=== PATIENT | female | born 1960 | race Caucasian/White ===

== ENCOUNTER 2019-05-17 11:52 | Inpatient (IN) | payer SELFPAY ==
[~2019-05-17] VITALS: Ht 157.5 cm; Wt 66.4 kg
[~2019-05-17 11:52] MED LIST: CLAR500T; METR500T14
[2019-05-17] MEDS ORDERED: MORPHINE SULFATE 4 MG/ML SYR/VIAL IV PRN (12:15)
[2019-05-17] MEDS ORDERED: PROMETHAZINE HCL 25 MG/ML 1ML IV ONE (12:15)
[2019-05-17] MEDS ORDERED: ASPirin 81 mg TAB PO ONE (12:15)
[2019-05-17] MEDS ORDERED: PANTOPRAZOLE 40 MG/10 ML VIAL INJ IV ONE (12:45)
[2019-05-17 14:26] LABS: Basophils # (auto) 0 uL; Basophils % (auto) 0.8 % (0.0-2.0); Eosinophils # (auto) 0.1 uL; Eosinophils % (auto) 1.8 % (0.0-7.0); Hematocrit 43.3 % (36.0-46.0); Hemoglobin 14.8 g/dL (12.2-16.2); Lymphocytes # (auto) 1.2 uL; Lymphocytes % (auto) 28.5 % (10.0-50.0); Mean Corpuscular Hgb Conc. 34.2 g/dL (32.0-36.0); Mean Corpuscular Volume 96.6 fL (80.0-100.0); Monocytes # (auto) 0.5 uL; Monocytes % (auto) 11.4 % (0.0-12.0); Neutrophils # (auto) 2.4 uL; Neutrophils % (auto) 57.5 % (37.0-80.0); Nucleated Red Blood Cells % 0.2 %; Platelet Count (auto) 110 10^3/uL (140-450); Red Blood Cells 4.49 10^6/uL (4.0-5.20); Red Cell Distribution Width 14.9 % (11.8-14.3); White Blood Cell 4.2 10^3/uL (4.4-10.8)
[2019-05-17 14:42] LABS: INR 1.09 (0.9-1.15); Partial Thromboplastin Time 25.8 sec (23.64-32.05)
[2019-05-17 14:56] LABS: Alanine Aminotransferase 227 U/L (13-56); Albumin 2.9 g/dL (3.4-5.0); Anion Gap 8 (5-15); Aspartate Aminotransferase 317 U/L (15-37); Blood Urea Nitrogen 14 mg/dL (7-18); Carbon Dioxide 25 mmol/L (21-32); Chloride 100 mmol/L (98-107); Magnesium 2.4 mg/dL (1.6-2.6); Potassium 4.2 mmol/L (3.5-5.1); Sodium 133 mmol/L (136-145)
[2019-05-17 15:01] LABS: Alkaline Phosphatase 337 U/L (45-117); BUN/Creatinine Ratio 17.9; Bilirubin, Total 3.5 mg/dL (0.2-1.0); GFR African American 98 mL/min; GFR Non-African American 81 mL/min; Total Protein 9.2 g/dL (6.4-8.2)
[2019-05-17 15:10] LABS: Glucose 432 mg/dL (74-106)
[2019-05-17] MEDS ORDERED: SODIUM CHLORIDE 0.9% 1,000 ML IVB ONE (15:36)
[2019-05-17] MEDS ORDERED: InsuLIN REG 1unit/0.01ml Soln (100units/ml) IV ONE (17:15)
[2019-05-17] MEDS ORDERED: INSULIN LANTUS (GLARGINE) 1 /0.01ml (100units/ml) SC ONE (17:45)
[2019-05-17] MEDS ORDERED: chlordiazePOXIDE HCL 25 MG CAP PO PRN (17:45)
[2019-05-17] MEDS ORDERED: THIAMINE 100mg/ml INJ (200mg/2ml VIAL) IV ONE (17:45)
[2019-05-17] MEDS ORDERED: traMADol HCL 50 MG TAB PO PRN (17:45)
[2019-05-17] MEDS ORDERED: NITROGLYCERIN 0.4 MG SL TAB SL PRN (17:45)
[2019-05-17] MEDS ORDERED: LACTULOSE 20Gm/30ML SOLN PO PRN (17:45)
[2019-05-17] MEDS ORDERED: MORPHINE SULF INJ 2 MG/ML SYRINGE 1ML IV PRN (17:45)
[2019-05-17] MEDS ORDERED: DEXTROSE (50%) 50ML SYRG IV PRN (17:45)
[2019-05-17] MEDS ORDERED: PROMETHAZINE HCL 25 MG/ML 1ML IV PRN (17:45)
[2019-05-17] MEDS ORDERED: ACETAMINOPHEN 500 MG TAB PO PRN (17:45)
[2019-05-17] MEDS ORDERED: NITROGLYCERIN 0.4 MG SL TAB SL ONE ×2 (17:52→18:00)
[2019-05-17] MEDS ORDERED: FOLIC ACID 1 MG, MULTIPLE VITAMIN 10 ML, MAGNESIUM SULF SDV 50% 8 MEQ, THIAMINE INJ 100... INJ SCH ×5 (18:05)
[2019-05-17] MEDS: SODIUM CHLORIDE 0.9% 1,000 ML IV SCH (18:15)
[2019-05-17] MEDS: chlordiazePOXIDE HCL 5 MG CAP PO SCH (18:16)
[2019-05-17 18:37] LABS: Alcohol, Urine < 3.0 mg/dL (0-5); Amphetamine Screen, Urine NEGATIVE (NEGATIVE); Barbiturate Scree,Urine NEGATIVE (NEGATIVE); Benzodiazephine Screen, Urine NEGATIVE (NEGATIVE); Cannabinoid Screen, Urine NEGATIVE (NEGATIVE); Cocaine Screen, Urine NEGATIVE (NEGATIVE); Opiate Scree,Urine NEGATIVE (NEGATIVE); Phencyclidine Screen, Urine NEGATIVE (NEGATIVE)
[2019-05-17] MEDS: ACCU-CHEK COMFORT CURVE STRIP VI SCH (20:18)
[2019-05-17] MEDS: InsuLIN REG 1unit/0.01ml Soln (100units/ml) SC SCH (20:22)
--- NOTE | 2019-05-17 21:05 | NUR ---
Telemetry admit from ER Patient admitted to Telemetry unit and oriented to primary RN, unit, room, bed, and unit policies regarding patient care and visiting hours. Patient now on continuous telemetry monitoring, tele box #HC-2 and telemetry reading on arrival to unit is sinus rhythm. Bed is in lowest position and locked. Call light within reach. Board updated. Patient weighed by bedscale and encouraged to call if they need something. All questions and concerns addressed, patient verbalized understanding.
[2019-05-17 21:10] VITALS: BP 141/80
[2019-05-17] MEDS: METOPROLOL TARTRATE 25 MG TAB PO SCH (21:18)
[2019-05-17 21:51] VITALS: BP 141/80
[2019-05-18 00:02] LABS: Amylase 22 U/L (25-115); Lipase 218 U/L (73-393)
[2019-05-18] MEDS: chlordiazePOXIDE HCL 5 MG CAP PO SCH ×4 (00:15→18:22)
[2019-05-18] MEDS: InsuLIN REG 1unit/0.01ml Soln (100units/ml) SC SCH ×5 (00:15→18:23)
[2019-05-18] MEDS: ACCU-CHEK COMFORT CURVE STRIP VI SCH ×5 (00:16→18:23)
[2019-05-18] MEDS: SODIUM CHLORIDE 0.9% 1,000 ML IV SCH ×2 (03:36→13:34)
[2019-05-18 04:50] VITALS: BP 120/84
[2019-05-18 06:04] LABS: Basophils # (auto) 0 uL; Basophils % (auto) 1.3 % (0.0-2.0); Eosinophils # (auto) 0.1 uL; Eosinophils % (auto) 1.6 % (0.0-7.0); Hematocrit 37.2 % (36.0-46.0); Hemoglobin 12.6 g/dL (12.2-16.2); Lymphocytes % (auto) 30.5 % (10.0-50.0); Mean Corpuscular Hemoglobin 32.8 pg (28.0-32.0); Mean Corpuscular Hgb Conc. 33.8 g/dL (32.0-36.0); Mean Corpuscular Volume 96.9 fL (80.0-100.0); Monocytes # (auto) 0.4 uL; Monocytes % (auto) 11.8 % (0.0-12.0); Neutrophils # (auto) 1.9 uL; Neutrophils % (auto) 54.8 % (37.0-80.0); Platelet Count (auto) 89 10^3/uL (140-450); Red Blood Cells 3.84 10^6/uL (4.0-5.20); White Blood Cell 3.4 10^3/uL (4.4-10.8)
[2019-05-18 06:38] LABS: Albumin 2.3 g/dL (3.4-5.0); Calcium 7.9 mg/dL (8.5-10.1); Potassium 3.5 mmol/L (3.5-5.1)
[2019-05-18 06:43] LABS: Bilirubin, Total 2.1 mg/dL (0.2-1.0); Total Protein 7.2 g/dL (6.4-8.2)
[2019-05-18] MEDS: INSULIN LANTUS (GLARGINE) 1 /0.01ml (100units/ml) SC SCH ×2 (06:44→21:59)
--- NOTE | 2019-05-18 07:30 | NUR ---
OPENING SHIFT NOTE RECEIVED REPORT FROM [facility] NURSE, ASSUMED CARE OF PATIENT. PATIENT IS A&OX4 AND DENIES ANY C/O PAIN OR DISTRESS AT THIS TIME. PATIENT BED IS IN LOW POSITION, BRAKES APPLIED, BED RAILS UP X2 AND CALL LIGHT WITHIN REACH. EDUCATED PATIENT ON POC AND CALL LIGHT USE PRN, PATIENT VERBALIZED UNDERSTANDING. CONTINUING TO MONITOR Q1 HR AND PRN
[2019-05-18 08:31] LABS: BUN/Creatinine Ratio 21.1
[2019-05-18 09:00] VITALS: BP 117/74
[2019-05-18] MEDS: PANTOPRAZOLE 40 MG TAB PO SCH (09:03)
[2019-05-18] MEDS: METOPROLOL TARTRATE 25 MG TAB PO SCH ×2 (09:04→21:59)
[2019-05-18] MEDS: THIAMINE 100mg/ml INJ (200mg/2ml VIAL) IV SCH (09:05)
[2019-05-18] MEDS ORDERED: ENALAPRIL MALEATE 2.5 MG TAB PO SCH (10:00)
[2019-05-18] MEDS ORDERED: NITROGLYCERIN 0.2MG/HR TOPICAL PATCH TD SCH (10:00)
[2019-05-18] MEDS ORDERED: ENOXAPARIN SOD 40 MG/0.4 ML SYRINGE SC SCH (10:00)
[2019-05-18] MEDS ORDERED: ASPirin 81 mg TAB PO SCH (10:00)
[2019-05-18] MEDS ORDERED: FOLIC ACID 1 MG, MULTIPLE VITAMIN 10 ML, MAGNESIUM SULF SDV 50% 8 MEQ, THIAMINE INJ 100... INJ SCH ×5 (12:00)
[2019-05-18 13:09] VITALS: BP 116/72
--- NOTE | 2019-05-18 14:00 | NUR ---
AT BEDSIDE DR MCCURDY AT BEDSIDE
--- NOTE | 2019-05-18 14:28 | NUR ---
RECEIVED CALL FROM DR GARSIA PER DR GARSIA HE STATED HE IS TOO BUSY TODAY AND IS UNABLE TO SEE THE PATIENT, SHE WILL NEED TO BE SEEN TOMORROW.
[2019-05-18] MEDS ORDERED: DEXTROSE (50%) 50ML SYRG IV PRN (16:00)
[2019-05-18 16:08] LABS: % Iron Saturation 17.4 % (15-50)
[2019-05-18 16:57] VITALS: BP 117/79
--- NOTE | 2019-05-18 17:50 | NUR ---
echo being completed at this time
[2019-05-18] MEDS ORDERED: ACCU-CHEK COMFORT CURVE STRIP VI SCH (18:00)
[2019-05-18 19:14] LABS: Urine Bacteria NONE SEEN /hpf (None Seen); Urine Blood Negative /uL (Negative); Urine Mucus FEW (None Seen); Urine Specific Gravity 1.021 (1.001-1.035); Urine WBC 5 /hpf (0 - 5)
--- NOTE | 2019-05-18 19:26 | NUR ---
Opening Shift Note Assumed care of patient, awake and alert x 4. No S/S of distress/SOB. Bed is in lowest position and locked. Call light within reach. Board updated. Tele box number matches monitor and leads are in correct placement. Instructed on POC and to call for assist PRN, will continue to monitor for changes Q1hr and PRN.
[2019-05-18] MEDS ORDERED: InsuLIN REG 1unit/0.01ml Soln (100units/ml) SC SCH (20:00)
[2019-05-18 21:33] VITALS: BP_SYST 115; BP_SYST 91; BP_DIAS 71; BP_DIAS 79
[2019-05-19] MEDS: chlordiazePOXIDE HCL 5 MG CAP PO SCH ×4 (00:18→17:59)
[2019-05-19] MEDS: InsuLIN REG 1unit/0.01ml Soln (100units/ml) SC SCH ×5 (00:19→23:24)
[2019-05-19] MEDS: ACCU-CHEK COMFORT CURVE STRIP VI SCH ×5 (00:19→23:24)
[2019-05-19 05:08] VITALS: BP 97/61
[2019-05-19] MEDS: INSULIN LANTUS (GLARGINE) 1 /0.01ml (100units/ml) SC SCH ×2 (06:17→23:03)
--- NOTE | 2019-05-19 07:40 | NUR ---
OPENING NOTE ASSUMED CARE OF PT. ALERT AND ORIENTED. NO SIGNS OF SOB/DISTRESS NOTED. DENIES ANY PAIN. BED SET TO LOWEST POSITION/LOCKED. BEDSIDE RAILS UP X2. CALL LIGHT WITHIN REACH. INSTRUCTED PT TO CALL FOR ASSISTANCE. DISCUSSED POC. WILL CONTINUE TO MONITOR Q1HR AND PRN.
[2019-05-19 08:00] VITALS: BP 105/72
[2019-05-19] MEDS: METOPROLOL TARTRATE 25 MG TAB PO SCH ×2 (09:52→23:02)
[2019-05-19] MEDS: PANTOPRAZOLE 40 MG TAB PO SCH (09:52)
[2019-05-19] MEDS: THIAMINE 100mg/ml INJ (200mg/2ml VIAL) IV SCH (09:52)
[2019-05-19 12:00] VITALS: BP 133/70
[2019-05-19] MEDS ORDERED: FUROSEMIDE 20 MG TAB PO ONE (13:30)
[2019-05-19] MEDS ORDERED: POTASSIUM CHL 10 Meq TABLET PO ONE (13:30)
[2019-05-19 14:23] LABS: Hepatitis B Surface Antibody Negative
[2019-05-19 15:02] LABS: Hepatitis A Total Antibody Negative
[2019-05-19 15:35] LABS: Hepatitis B Surface Antigen Negative (Negative)
[2019-05-19 15:36] LABS: Hepatitis B Core Total AB Negative
[2019-05-19 15:37] LABS: Hepatitis C Antibody Positive (Negative)
--- NOTE | 2019-05-19 16:44 | NUR ---
assessment Per consult patient does not have PCP. Josefa Doss to see patient for PCP. Addendum: 05/19/19 at 1645 by Josefa Thayer Amended: Links added.
[2019-05-19 17:00] VITALS: BP 130/83
--- NOTE | 2019-05-19 19:20 | NUR ---
Opening Shift Note Assumed care of patient, awake and alert. No S/S of distress/SOB or pain. Instructed on POC and to call for assist PRN, will continue to monitor for changes Q1hr and PRN.
[2019-05-19 22:00] VITALS: BP 124/78
[2019-05-19] MEDS ORDERED: ATORVASTATIN 20 MG TAB PO SCH (22:00)
[2019-05-19] MEDS: PROPRANOLOL HCL 20 MG TAB PO SCH (23:02)
[2019-05-20] MEDS: chlordiazePOXIDE HCL 5 MG CAP PO SCH ×2 (00:26→06:00)
[2019-05-20 05:00] VITALS: BP 101/72
[2019-05-20] MEDS: InsuLIN REG 1unit/0.01ml Soln (100units/ml) SC SCH ×3 (06:00→17:31)
--- NOTE | 2019-05-20 06:30 | NUR ---
IV insertion IV access obtained, via clean sterile technique by inserting 22 gauge catheter at the right hand after 1 attempt(s). IV secured properly. No trauma to site. Patient tolerated well.
[2019-05-20] MEDS: INSULIN LANTUS (GLARGINE) 1 /0.01ml (100units/ml) SC SCH ×2 (07:02→22:09)
[2019-05-20] MEDS: ACCU-CHEK COMFORT CURVE STRIP VI SCH ×3 (07:03→17:30)
--- NOTE | 2019-05-20 08:00 | NUR ---
PATIENT OFF UNIT VIA WHEELCHAIR FOR STRESS TEST.
[2019-05-20] MEDS ORDERED: ADENOSINE 55 MG in GIVE UN-DILUTED 0 ML IV STA (08:21)
[2019-05-20 08:59] VITALS: BP 128/74
[2019-05-20] MEDS: METOPROLOL TARTRATE 25 MG TAB PO SCH (10:09)
[2019-05-20] MEDS: PANTOPRAZOLE 40 MG TAB PO SCH (10:09)
[2019-05-20] MEDS: THIAMINE 100mg/ml INJ (200mg/2ml VIAL) IV SCH (10:09)
[2019-05-20] MEDS: POTASSIUM CHL 10 Meq TABLET PO SCH (10:09)
[2019-05-20] MEDS: PROPRANOLOL HCL 20 MG TAB PO SCH ×2 (10:18→22:08)
[2019-05-20] MEDS: FUROSEMIDE 20 MG TAB PO SCH (10:19)
[2019-05-20] MEDS ORDERED: MORPHINE SULFATE 4 MG/ML SYR/VIAL IV PRN (12:15)
[2019-05-20] MEDS ORDERED: MORPHINE SULF INJ 2 MG/ML SYRINGE 1ML IV PRN (12:15)
[2019-05-20 13:20] VITALS: BP 117/71
--- NOTE | 2019-05-20 16:03 | NUR ---
IV removal Left AC 18 gauge IV infiltrated. DC'd with sterile technique, catheter fully intact. Pressure dressing applied to site. Patient tolerated procedure well.
[2019-05-20 16:53] VITALS: BP 108/50
[2019-05-20 22:00] VITALS: BP 119/71
[2019-05-21] MEDS: ACCU-CHEK COMFORT CURVE STRIP VI SCH ×5 (00:59→23:53)
[2019-05-21] MEDS: InsuLIN REG 1unit/0.01ml Soln (100units/ml) SC SCH ×5 (00:59→23:53)
[2019-05-21 05:00] VITALS: BP 112/71
[2019-05-21] MEDS: INSULIN LANTUS (GLARGINE) 1 /0.01ml (100units/ml) SC SCH ×2 (06:43→22:46)
[2019-05-21 07:59] LABS: Basophils # (auto) 0 uL; Basophils % (auto) 0.9 % (0.0-2.0); Eosinophils # (auto) 0.1 uL; Eosinophils % (auto) 2.5 % (0.0-7.0); Hematocrit 40.1 % (36.0-46.0); Hemoglobin 13.6 g/dL (12.2-16.2); Lymphocytes # (auto) 1.3 uL; Lymphocytes % (auto) 35.3 % (10.0-50.0); Mean Corpuscular Hemoglobin 32.9 pg (28.0-32.0); Mean Corpuscular Hgb Conc. 33.9 g/dL (32.0-36.0); Monocytes # (auto) 0.5 uL; Monocytes % (auto) 14.9 % (0.0-12.0); Neutrophils # (auto) 1.7 uL; Neutrophils % (auto) 46.4 % (37.0-80.0); Nucleated Red Blood Cells % 0.1 %; Platelet Count (auto) 103 10^3/uL (140-450); Red Blood Cells 4.14 10^6/uL (4.0-5.20); Red Cell Distribution Width 15.1 % (11.8-14.3); White Blood Cell 3.6 10^3/uL (4.4-10.8)
[2019-05-21 08:15] LABS: Potassium 3.7 mmol/L (3.5-5.1)
[2019-05-21 08:23] LABS: Albumin 2.4 g/dL (3.4-5.0); BUN/Creatinine Ratio 21.3; Calcium 7.2 mg/dL (8.5-10.1); Total Protein 7.9 g/dL (6.4-8.2)
[2019-05-21 09:00] VITALS: BP 114/71
[2019-05-21] MEDS: THIAMINE 100mg/ml INJ (200mg/2ml VIAL) IV SCH (09:51)
[2019-05-21] MEDS: PROPRANOLOL HCL 20 MG TAB PO SCH ×2 (09:51→22:45)
[2019-05-21] MEDS: POTASSIUM CHL 10 Meq TABLET PO SCH (09:51)
[2019-05-21] MEDS: FUROSEMIDE 20 MG TAB PO SCH (09:52)
[2019-05-21] MEDS: PANTOPRAZOLE 40 MG TAB PO SCH (09:52)
--- NOTE | 2019-05-21 12:18 | NUR ---
DIABETIC EDUCATION PROVIDED TO PATIENT.
--- NOTE | 2019-05-21 12:38 | NUR ---
Nutrition Assessment Notes please see attached link for complete assessment Est. Needs BW (66 kg): 0144-4920 kcal (23-25 kcal/kgBW), 66-72 gms pro (1.0-1.1 gms/kgBW). Will continue to monitor pertinent labs and reassess nutrient need prn Addendum: 05/21/19 at [address] Amended: Links added.
[2019-05-21 13:00] VITALS: BP 108/70
[2019-05-21 16:45] VITALS: BP 115/78
--- NOTE | 2019-05-21 19:25 | NUR ---
Opening Shift Note Assumed care of patient, awake and alert. Patient is comfortable watching TV. No S/S of distress/SOB or pain. Instructed and educated patient on updated POC and to call for assist PRN, will continue to monitor for changes Q1hr and PRN.
[2019-05-21 22:00] VITALS: BP 109/70
[2019-05-22 05:00] VITALS: BP 106/69
[2019-05-22] MEDS: InsuLIN REG 1unit/0.01ml Soln (100units/ml) SC SCH ×4 (06:00→23:41)
[2019-05-22] MEDS: ACCU-CHEK COMFORT CURVE STRIP VI SCH ×4 (06:26→23:41)
[2019-05-22] MEDS: INSULIN LANTUS (GLARGINE) 1 /0.01ml (100units/ml) SC SCH ×2 (06:26→21:48)
[2019-05-22 06:30] LABS: Basophils # (auto) 0 uL; Eosinophils # (auto) 0.1 uL; Eosinophils % (auto) 2.4 % (0.0-7.0); Hematocrit 39.9 % (36.0-46.0); Hemoglobin 13.6 g/dL (12.2-16.2); Lymphocytes # (auto) 1.4 uL; Lymphocytes % (auto) 33.9 % (10.0-50.0); Mean Corpuscular Hemoglobin 32.8 pg (28.0-32.0); Mean Corpuscular Hgb Conc. 34.1 g/dL (32.0-36.0); Mean Corpuscular Volume 96.2 fL (80.0-100.0); Monocytes # (auto) 0.7 uL; Monocytes % (auto) 16.5 % (0.0-12.0); Neutrophils # (auto) 1.9 uL; Neutrophils % (auto) 46.2 % (37.0-80.0); Nucleated Red Blood Cells % 0.1 %; Platelet Count (auto) 117 10^3/uL (140-450); Red Blood Cells 4.14 10^6/uL (4.0-5.20); Red Cell Distribution Width 14.8 % (11.8-14.3); White Blood Cell 4.2 10^3/uL (4.4-10.8)
[2019-05-22 06:53] LABS: Albumin 2.3 g/dL (3.4-5.0); Potassium 3.5 mmol/L (3.5-5.1)
[2019-05-22 06:56] LABS: Bilirubin, Total 1.7 mg/dL (0.2-1.0); Calcium 8.8 mg/dL (8.5-10.1); Total Protein 7.9 g/dL (6.4-8.2)
--- NOTE | 2019-05-22 07:15 | NUR ---
CLOSING NOTE The patient is resting comfortably in bed. Care has been endorsed to day shift RN.
[2019-05-22 09:00] VITALS: BP 105/74
[2019-05-22] MEDS: THIAMINE 100mg/ml INJ (200mg/2ml VIAL) IV SCH (09:58)
[2019-05-22] MEDS: POTASSIUM CHL 10 Meq TABLET PO SCH (09:58)
[2019-05-22] MEDS: PANTOPRAZOLE 40 MG TAB PO SCH (09:59)
[2019-05-22] MEDS: PROPRANOLOL HCL 20 MG TAB PO SCH (09:59)
[2019-05-22] MEDS: FUROSEMIDE 20 MG TAB PO SCH (09:59)
[2019-05-22 12:49] VITALS: BP 125/82
[2019-05-22 17:00] VITALS: BP 117/79
[2019-05-22 22:00] VITALS: BP 100/66
[2019-05-22] MEDS: TEMAZEPAM 15 MG CAP PO PRN (23:42)
[2019-05-23 05:00] VITALS: BP 104/69
[2019-05-23] MEDS: InsuLIN REG 1unit/0.01ml Soln (100units/ml) SC SCH ×3 (05:31→18:24)
[2019-05-23] MEDS: ACCU-CHEK COMFORT CURVE STRIP VI SCH ×3 (05:31→18:23)
[2019-05-23] MEDS: INSULIN LANTUS (GLARGINE) 1 /0.01ml (100units/ml) SC SCH ×2 (06:39→22:24)
[2019-05-23 08:00] VITALS: BP 104/67
[2019-05-23 08:08] LABS: Albumin 2.3 g/dL (3.4-5.0); Bilirubin, Direct 1.3 mg/dL (0-0.2)
[2019-05-23 08:11] LABS: Bilirubin, Total 1.8 mg/dL (0.2-1.0)
[2019-05-23] MEDS: PANTOPRAZOLE 40 MG TAB PO SCH (10:15)
[2019-05-23] MEDS: FOLIC ACID 1 MG, MULTIPLE VITAMIN 10 ML, MAGNESIUM SULF SDV 50% 8 MEQ, THIAMINE INJ 100... INJ SCH ×5 (12:20)
[2019-05-23 13:00] VITALS: BP 112/74
[2019-05-23] MEDS: LACTULOSE 20Gm/30ML SOLN PO SCH ×2 (14:06→22:00)
[2019-05-23 17:00] VITALS: BP 121/77
[2019-05-23 21:52] VITALS: BP 116/79
[2019-05-24] MEDS: ACCU-CHEK COMFORT CURVE STRIP VI SCH ×5 (00:03→23:53)
[2019-05-24] MEDS: InsuLIN REG 1unit/0.01ml Soln (100units/ml) SC SCH ×5 (00:03→23:54)
[2019-05-24] MEDS: TEMAZEPAM 15 MG CAP PO PRN (00:04)
[2019-05-24 05:00] VITALS: BP 109/69
[2019-05-24 06:06] LABS: Albumin 2.4 g/dL (3.4-5.0); Bilirubin, Direct 1.1 mg/dL (0-0.2); Bilirubin, Total 1.5 mg/dL (0.2-1.0); Total Protein 7.5 g/dL (6.4-8.2)
[2019-05-24] MEDS: LACTULOSE 20Gm/30ML SOLN PO SCH ×3 (06:06→21:30)
[2019-05-24] MEDS: INSULIN LANTUS (GLARGINE) 1 /0.01ml (100units/ml) SC SCH ×2 (06:32→21:30)
--- NOTE | 2019-05-24 07:30 | NUR ---
RECEIVED REPORT FROM NIGHT NURSE. PATIENT RESTING IN BED, NO DISTRESS NOTED. WILL CONTINUE TO MONITOR.
[2019-05-24] MEDS: PANTOPRAZOLE 40 MG TAB PO SCH (09:18)
[2019-05-24 09:29] VITALS: BP 120/77
[2019-05-24] MEDS: FOLIC ACID 1 MG, MULTIPLE VITAMIN 10 ML, MAGNESIUM SULF SDV 50% 8 MEQ, THIAMINE INJ 100... INJ SCH ×5 (11:53)
--- NOTE | 2019-05-24 12:01 | NUR ---
Nutrition consult/Follow-up Notes Wt. 113 kg Pt. visit: Endorses excellent and improved appetite with no reports of GI distress. PO intake 100% x 3 days. No major changes since previous assessment. Est. Needs (based on previous assessment) Calories/Kcals/Kg 23-25 Kcals Calculated 1650 Proteing/K.0-1.1 Protein Calculated 66 Labs: POC glc >180 mg/dL x 3 days, AST 610H, ALT 403H, ALB 2.4L Skin: Liborio 18 GI: BM x 1 PES: Altered nutrition related lab values r/t current chronic medical condition aeb elev LFTs, mod hypoalb, hyperbil, elev A1c, hyperglycemia (ongoing) Plan of care: Monitor PO intake/tolerance, weight trends, labs, skin integrity. F/u mod 3-5 days. Recommendations: 1) Consider low fat diet for elevated LFT's and continue CCHO diet as ordered and as tolerated.
[2019-05-24 13:00] VITALS: BP_SYST 120; BP_SYST 132; BP_DIAS 58; BP_DIAS 76
[2019-05-24 17:17] VITALS: BP 135/81
[2019-05-24 22:00] VITALS: BP 128/79
[2019-05-25 05:00] VITALS: BP 117/74
[2019-05-25] MEDS: InsuLIN REG 1unit/0.01ml Soln (100units/ml) SC SCH ×4 (06:00→23:56)
[2019-05-25] MEDS: ACCU-CHEK COMFORT CURVE STRIP VI SCH ×4 (06:20→23:56)
[2019-05-25] MEDS: LACTULOSE 20Gm/30ML SOLN PO SCH ×3 (06:20→22:00)
[2019-05-25] MEDS: INSULIN LANTUS (GLARGINE) 1 /0.01ml (100units/ml) SC SCH ×2 (06:21→22:19)
--- NOTE | 2019-05-25 07:45 | NUR ---
Opening Shift Note Assumed care of patient, comfortably sleeping. No S/S of distress/SOB or pain. Bed at lowest locked position and call light within reach. Instructed on POC and to call for assist PRN, will continue to monitor for changes Q1hr and PRN.
[2019-05-25 08:00] VITALS: BP 130/74
[2019-05-25] MEDS: PANTOPRAZOLE 40 MG TAB PO SCH (08:41)
[2019-05-25 09:00] VITALS: BP 130/74
[2019-05-25] MEDS: FOLIC ACID 1 MG, MULTIPLE VITAMIN 10 ML, MAGNESIUM SULF SDV 50% 8 MEQ, THIAMINE INJ 100... INJ SCH ×5 (12:00)
[2019-05-25 13:00] VITALS: BP 119/80
--- NOTE | 2019-05-25 15:50 | NUR ---
Patient reports having a normal BM.
[2019-05-25 17:04] VITALS: BP 136/87
--- NOTE | 2019-05-25 18:35 | NUR ---
Patient reports having 3 bowel movements throughout shift .
--- NOTE | 2019-05-25 19:00 | NUR ---
OPENING NOTE Received report from day shift RN. Patient is A&O X's 4 with no s/s of distress noted. Patient reports no pain. She states that she feels a little bloated right now so she does not want to take her lactulose tonight. Educated patient on POC and to use call light when in need of assistance. Patient verbalized understanding. Bed is in lowest/locked position with side rails up X's 2 and call light is within reach of patient. Will continue to monitor for changes and round hourly/PRN.
[2019-05-25 22:00] VITALS: BP 135/76
[2019-05-25] MEDS: TEMAZEPAM 15 MG CAP PO PRN (23:56)
[2019-05-26 05:00] VITALS: BP 117/77
[2019-05-26] MEDS: LACTULOSE 20Gm/30ML SOLN PO SCH (06:00)
[2019-05-26] MEDS: InsuLIN REG 1unit/0.01ml Soln (100units/ml) SC SCH ×3 (06:00→18:04)
[2019-05-26] MEDS: ACCU-CHEK COMFORT CURVE STRIP VI SCH ×3 (06:31→18:04)
[2019-05-26] MEDS: INSULIN LANTUS (GLARGINE) 1 /0.01ml (100units/ml) SC SCH ×2 (06:31→22:36)
--- NOTE | 2019-05-26 07:36 | NUR ---
Opening Shift Note Assumed care of patient, comfortably sleeping. No S/S of distress/SOB or pain noted. Bed at lowest locked position and call light within reach. Instructed on POC and to call for assist PRN, will continue to monitor for changes Q1hr and PRN.
[2019-05-26 08:00] VITALS: BP 107/69
[2019-05-26] MEDS ORDERED: chlordiazePOXIDE HCL 25 MG CAP PO PRN (08:45)
[2019-05-26] MEDS ORDERED: LACTULOSE 20Gm/30ML SOLN PO PRN (08:45)
[2019-05-26 09:00] VITALS: BP 107/69
[2019-05-26 09:24] LABS: Basophils # (auto) 0 uL; Basophils % (auto) 1.1 % (0.0-2.0); Eosinophils # (auto) 0.1 uL; Hematocrit 40.6 % (36.0-46.0); Hemoglobin 13.5 g/dL (12.2-16.2); Mean Corpuscular Hemoglobin 32.5 pg (28.0-32.0); Mean Corpuscular Hgb Conc. 33.2 g/dL (32.0-36.0); Mean Corpuscular Volume 97.8 fL (80.0-100.0); Monocytes # (auto) 0.5 uL; Monocytes % (auto) 13.3 % (0.0-12.0); Neutrophils # (auto) 2.2 uL; Neutrophils % (auto) 57.6 % (37.0-80.0); Platelet Count (auto) 104 10^3/uL (140-450); Red Blood Cells 4.15 10^6/uL (4.0-5.20); Red Cell Distribution Width 14.1 % (11.8-14.3); White Blood Cell 3.7 10^3/uL (4.4-10.8)
[2019-05-26 09:42] LABS: Albumin 2.7 g/dL (3.4-5.0); BUN/Creatinine Ratio 17.8; Calcium 8.5 mg/dL (8.5-10.1); Potassium 4.2 mmol/L (3.5-5.1)
[2019-05-26 09:45] LABS: Bilirubin, Total 1.6 mg/dL (0.2-1.0); Total Protein 8.2 g/dL (6.4-8.2)
[2019-05-26] MEDS: PANTOPRAZOLE 40 MG TAB PO SCH (10:00)
[2019-05-26 10:31] LABS: INR 1.07 (0.9-1.15); Partial Thromboplastin Time 27.3 sec (23.64-32.05)
[2019-05-26] MEDS: FOLIC ACID 1 MG, MULTIPLE VITAMIN 10 ML, MAGNESIUM SULF SDV 50% 8 MEQ, THIAMINE INJ 100... INJ SCH ×5 (12:00)
[2019-05-26] MEDS ORDERED: MIDAZOLAM HCL 1MG/1ML-2 ML VIAL IV ONE (12:45)
[2019-05-26] MEDS ORDERED: fentaNYL CITRATE 100 MCG/2 ML VL IV ONE (12:45)
[2019-05-26 13:00] VITALS: BP 133/76
--- NOTE | 2019-05-26 16:55 | NUR ---
IV ON RIGHT HAND CAME OUT. APPLIED STERILE GAUZE AND COBAN. NO REDNESS/SWELLING NOTED, SLIGHT BRUISING NOTICED, TENDER TO TOUCH.
[2019-05-26 17:00] VITALS: BP 124/80
--- NOTE | 2019-05-26 17:00 | NUR ---
ATTEMPTED TO PLACE IV ON LEFT HAND, TWO TIMES. NO ACCESS OBTAINED. Addendum: 05/26/19 at 1821 by Michelle Aguilar RN Patient requested IV to be placed after dinner. Will pass on to ABIEL JC.
--- NOTE | 2019-05-26 19:00 | NUR ---
Opening Shift Note Assumed care of patient. Patient is awake and alert. No S/S of distress or SOB. Instructed on POC and to call for assist PRN, will continue to monitor. Bed in lowest position and bed rails up x2. Call light within reach.
--- NOTE | 2019-05-26 19:40 | NUR ---
Opening Shift Note Assumed care of patient, lying in bed, Maori speaking, bilingual research interviewer at bedside. Awake and alert, oriented x 4, follows direction, clear speech. On oxygen at 2L via NC with even and unlabored respirations, no S/S of distress or SOB. Patient is s/p right hemiarthroplasty on 05/25/19, dressing to right hip clean, dry and intact. Abductor pillow on. Remy intact and draining to gravity. IV to right upper arm intact and patent. IS at bedside, patient is able to use IS independently. Bed low locked position with side rails up x 2 and call light within reach. Instructed on POC and to call for assist PRN, will continue to monitor for changes Q1hr and PRN. Addendum: 05/28/19 at 0414 by Ale Chacko RN RN WRONG PATIENT
[2019-05-26 22:00] VITALS: BP 135/85
--- NOTE | 2019-05-26 23:00 | NUR ---
IV insertion IV access obtained, via clean sterile technique by inserting 20 gauge catheter at left forearm after 2 attempt(s). IV secured properly. No trauma to site. Patient tolerated well. NOTE:
[2019-05-26] MEDS: TEMAZEPAM 15 MG CAP PO PRN (23:45)
[2019-05-27] MEDS: ACCU-CHEK COMFORT CURVE STRIP VI SCH ×4 (01:11→23:01)
[2019-05-27] MEDS: InsuLIN REG 1unit/0.01ml Soln (100units/ml) SC SCH ×4 (01:11→23:01)
[2019-05-27 07:05] LABS: Albumin 2.3 g/dL (3.4-5.0); Bilirubin, Direct 1.1 mg/dL (0-0.2)
[2019-05-27 07:08] LABS: Bilirubin, Total 1.5 mg/dL (0.2-1.0)
[2019-05-27 08:00] VITALS: BP 98/72
[2019-05-27] MEDS: PANTOPRAZOLE 40 MG TAB PO SCH (09:12)
[2019-05-27] MEDS: FOLIC ACID 1 MG, MULTIPLE VITAMIN 10 ML, MAGNESIUM SULF SDV 50% 8 MEQ, THIAMINE INJ 100... INJ SCH ×5 (12:45)
[2019-05-27 13:00] VITALS: BP 126/71
[2019-05-27 17:00] VITALS: BP 132/89
--- NOTE | 2019-05-27 19:30 | NUR ---
Opening Shift Note Assumed care of patient. Patient is awake and alert. No S/S of distress or SOB. Instructed on POC and to call for assist PRN, will continue to monitor. Bed locked in lowest position and side rails up x2. Call light within reach.
--- NOTE | 2019-05-27 21:00 | NUR ---
IV removal IV removed upon patient request. Attempted to place new IV and patient refused. Explained and educated the patient on the possible risks with removal of her IV. Patient verbalized understanding of the risks and stated "Im going home tomorrow, i dont want it in anymore".
[2019-05-27 22:00] VITALS: BP 127/95
[2019-05-27] MEDS: INSULIN LANTUS (GLARGINE) 1 /0.01ml (100units/ml) SC SCH (22:52)
[2019-05-27] MEDS: TEMAZEPAM 15 MG CAP PO PRN (22:53)
[2019-05-28 05:00] VITALS: BP 122/82
[2019-05-28] MEDS: ACCU-CHEK COMFORT CURVE STRIP VI SCH (06:26)
[2019-05-28] MEDS: InsuLIN REG 1unit/0.01ml Soln (100units/ml) SC SCH (06:27)
[2019-05-28] MEDS: INSULIN LANTUS (GLARGINE) 1 /0.01ml (100units/ml) SC SCH (06:28)
[2019-05-28 06:39] LABS: Albumin 2.4 g/dL (3.4-5.0); Bilirubin, Total 1.4 mg/dL (0.2-1.0); Calcium 8.9 mg/dL (8.5-10.1); Potassium 3.8 mmol/L (3.5-5.1); Total Protein 8.1 g/dL (6.4-8.2)
[2019-05-28] MEDS: PANTOPRAZOLE 40 MG TAB PO SCH (08:37)
[2019-05-28 09:00] VITALS: BP 119/74
[2019-05-28 12:00] VITALS: BP 117/80
--- NOTE | 2019-05-28 13:21 | NUR ---
patient verbalized her transportation has arrived, she signed all discharge forms, collected all belongings and written prescriptions, verbalized understanding to supervisor [facility] and to follow up with GI and Primary physician as ordered. she denies any pain.
== END 2019-05-28 13:15 | disposition home or self-care (01) | DRG 433 ==
LOC: EDBD 11:52 → ER 12:05 → TELE 12:06 → TELE-WESTW 20:50 → WEST WING 05-21 12:15
PROVIDERS: ADMIT Internal Medicine; ATTEND Internal Medicine
DX: K70.30 Alcoholic cirrhosis of liver without ascites (principal); E44.0 Moderate protein-calorie malnutrition; K76.6 Portal hypertension; D69.6 Thrombocytopenia, unspecified; F10.10 Alcohol abuse, uncomplicated; I11.9 Hypertensive heart disease without heart failure; E11.65 Type 2 diabetes mellitus with hyperglycemia; Z80.8 Family history of malignant neoplasm of other organs or systems; Z82.49 Family history of ischemic heart disease and other diseases of the circulatory system; B19.20 Unspecified viral hepatitis C without hepatic coma; Z88.0 Allergy status to penicillin; Z88.2 Allergy status to sulfonamides; Z68.26 Body mass index [BMI] 26.0-26.9, adult
CPT/HCPCS: 36415; 71046; 74176; 76705; 78452; 80053; 80061; 80076; 80307; 81001; 82140; 82150; 82390; 82550; 82728; 82962; 83036; 83540; 83550; 83690; 83735; 83880; 84443; 84484; 85025; 85379; 85610; 85652; 85730; 86038; 86141; 86704; 86706; 86708; 86803; 87340; 93005; 93017; 93306; 94761; 96365; 96372; 96375; G0378; J0153; J1815

== ENCOUNTER 2020-03-04 07:59 | Emergency (ER) | payer MEDICAID ==
[~2020-03-04] VITALS: Ht 157.5 cm; Wt 71.2 kg
[~2020-03-04 07:59] MED LIST changes: -CLAR500T; +INSU100I4 SC; +INSU1INJ19 SC; +LISI-275 PO; -METR500T14; +SUM25T PO
[2020-03-04 08:38] LABS: Basophils # (auto) 0 10 ^3/uL (0-0.2); Basophils % (auto) 1.1 % (0.0-2.0); Eosinophils # (auto) 0.2 10 ^3/uL (0-0.8); Eosinophils % (auto) 4.6 % (0.0-7.0); Hemoglobin 13.5 g/dL (12.2-16.2); Lymphocytes # (auto) 1.4 10 ^3/uL (0.4-5.4); Lymphocytes % (auto) 32.6 % (10.0-50.0); Mean Corpuscular Hemoglobin 33.3 pg (28.0-32.0); Mean Corpuscular Hgb Conc. 34.7 g/dL (32.0-36.0); Mean Corpuscular Volume 96.2 fL (80.0-100.0); Monocytes # (auto) 0.5 10 ^3/uL (0-1.3); Neutrophils # (auto) 2.2 10 ^3/uL (1.6-8.6); Neutrophils % (auto) 50.7 % (37.0-80.0); Nucleated Red Blood Cells % 0.1 %; Platelet Count (auto) 70 10^3/uL (140-450); Red Blood Cells 4.06 10^6/uL (4.0-5.20); Red Cell Distribution Width 15.5 % (11.8-14.3); White Blood Cell 4.3 10^3/uL (4.4-10.8)
[2020-03-04 09:02] LABS: INR 1.3 (0.9-1.15); Partial Thromboplastin Time 30.2 sec (23.64-32.05)
[2020-03-04 09:03] LABS: Albumin 2.4 g/dL (3.4-5.0); Anion Gap 10 (5-15); Blood Urea Nitrogen 8 mg/dL (7-18); Calcium 7.6 mg/dL (8.5-10.1); Carbon Dioxide 22 mmol/L (21-32); Chloride 105 mmol/L (98-107); Glucose 195 mg/dL (74-106); Potassium 3.6 mmol/L (3.5-5.1); Sodium 137 mmol/L (136-145)
[2020-03-04 09:08] LABS: Alanine Aminotransferase 160 U/L (13-56); Alkaline Phosphatase 267 U/L (45-117); Aspartate Aminotransferase 381 U/L (15-37); BUN/Creatinine Ratio 13.1; Bilirubin, Total 3.3 mg/dL (0.2-1.0); GFR African American 130 mL/min; GFR Non-African American 107 mL/min; Total Protein 8.3 g/dL (6.4-8.2)
[2020-03-04 10:28] VITALS: BP 169/78
[2020-03-04] MEDS ORDERED: cloNIDine HCL 0.1 MG TAB PO ONE (11:00)
== END 2020-03-04 11:24 | disposition home or self-care (01) ==
LOC: ER 07:59
DX: K70.30 Alcoholic cirrhosis of liver without ascites (principal); R14.0 Abdominal distension (gaseous); R74.8 Abnormal levels of other serum enzymes; E44.0 Moderate protein-calorie malnutrition; I10 Essential (primary) hypertension; E11.9 Type 2 diabetes mellitus without complications; Z88.0 Allergy status to penicillin; Z88.2 Allergy status to sulfonamides
CPT/HCPCS: 36415; 71045; 76700; 80053; 83880; 84484; 85025; 85610; 85730; 86850; 86900; 86901; 93005

== ENCOUNTER 2020-06-01 16:43 | Inpatient (IN) | payer MEDICAID ==
[~2020-06-01] VITALS: Ht 157.5 cm; Wt 70.1 kg
[2020-06-01 18:17] LABS: Hematocrit 40.8 % (36.0-46.0); Hemoglobin 13.8 g/dL (12.2-16.2); Mean Corpuscular Hemoglobin 33.4 pg (28.0-32.0); Mean Corpuscular Hgb Conc. 33.8 g/dL (32.0-36.0); Mean Corpuscular Volume 98.9 fL (80.0-100.0); Platelet Count (auto) 74 10^3/uL (140-450); Red Blood Cells 4.13 10^6/uL (4.0-5.20); Red Cell Distribution Width 15.2 % (11.8-14.3); White Blood Cell 5.1 10^3/uL (4.4-10.8)
[2020-06-01 18:23] LABS: Band Neutrophils % (manual) 0; Basophils % (manual) 0 (0.0-2.0); Blast Cells 0; Metamyelocytes % 0; Myelocytes % 0; Promyelocytes % 0; Reactive Lymphocytes 0
[2020-06-01 18:33] LABS: Albumin 2.3 g/dL (3.4-5.0); Calcium 7.9 mg/dL (8.5-10.1); Potassium 3.4 mmol/L (3.5-5.1)
[2020-06-01 18:34] LABS: INR 1.37 (0.9-1.15); Partial Thromboplastin Time 29.9 sec (23.0-31.2)
[2020-06-01 18:39] LABS: BUN/Creatinine Ratio 15.6; Bilirubin, Total 5.7 mg/dL (0.2-1.0)
[2020-06-01 20:18] LABS: Eosinophils % (manual) 2 (0-7); Lymphocytes % (manual) 25 (10.0-50.0); Monocytes % (manual) 11 (0-12)
[2020-06-01] MEDS ORDERED: NITROGLYCERIN 0.4 MG SL TAB SL PRN (22:30)
[2020-06-01] MEDS ORDERED: ACETAMINOPHEN 325 MG TAB PO PRN (22:50)
--- NOTE | 2020-06-01 23:30 | NUR ---
Telemetry admit from ER NOAMYASMIN admitted to Telemetry unit. Patient oriented to RENETTA AGUILAR RN primary RN, unit, room, bed, and unit policies regarding patient care and visiting hours. Patient now on continuous telemetry monitoring, tele box #57 and telemetry reading on arrival to unit is Sinus Rhythm. Patient placed on bedside oxygen, weighed by bedscale and encouraged to call if they need something. All questions and concerns addressed, patient verbalized understanding.
[2020-06-02] MEDS ORDERED: ONDANSETRON HCL 4 MG/2 ML VIAL IV PRN
[2020-06-02 00:30] VITALS: BP 124/76
[2020-06-02] MEDS ORDERED: FOLI1TAB6 PO (03:15)
[2020-06-02] MEDS ORDERED: CYA100I PO (03:15)
[2020-06-02] MEDS: MORPHINE SULF INJ 2 MG/ML SYRINGE 1ML IV PRN ×2 (03:56→11:19)
[2020-06-02 04:53] VITALS: BP 121/76
[2020-06-02] MEDS ORDERED: HYDROcodone-ACET 5/325MG TAB PO PRN (06:00)
[2020-06-02] MEDS: ENOXAPARIN SOD 40 MG/0.4 ML SYRINGE SC SCH (07:22)
[2020-06-02 07:50] LABS: Basophils # (auto) 0 10 ^3/uL (0-0.2); Basophils % (auto) 0.4 % (0.0-2.0); Eosinophils # (auto) 0.1 10 ^3/uL (0-0.8); Eosinophils % (auto) 2.7 % (0.0-7.0); Hematocrit 38.3 % (36.0-46.0); Hemoglobin 12.7 g/dL (12.2-16.2); Lymphocytes # (auto) 1.4 10 ^3/uL (0.4-5.4); Mean Corpuscular Hemoglobin 33.3 pg (28.0-32.0); Mean Corpuscular Hgb Conc. 33.3 g/dL (32.0-36.0); Mean Corpuscular Volume 100.1 fL (80.0-100.0); Monocytes # (auto) 0.9 10 ^3/uL (0-1.3); Monocytes % (auto) 15.5 % (0.0-12.0); Neutrophils # (auto) 3.1 10 ^3/uL (1.6-8.6); Neutrophils % (auto) 56.4 % (37.0-80.0); Platelet Count (auto) 69 10^3/uL (140-450); Red Blood Cells 3.82 10^6/uL (4.0-5.20); Red Cell Distribution Width 15.4 % (11.8-14.3); White Blood Cell 5.5 10^3/uL (4.4-10.8)
[2020-06-02 08:12] LABS: Albumin 2.1 g/dL (3.4-5.0); Calcium 7.6 mg/dL (8.5-10.1); Magnesium 2.5 mg/dL (1.6-2.6); Potassium 3.7 mmol/L (3.5-5.1)
[2020-06-02 08:16] LABS: BUN/Creatinine Ratio 16.2; Bilirubin, Total 5.5 mg/dL (0.2-1.0); Phosphorus 3.8 mg/dL (2.5-4.90)
[2020-06-02 09:00] VITALS: BP 126/69
--- NOTE | 2020-06-02 09:52 | NUR ---
patient taken down for procedure.
[2020-06-02] MEDS: FUROSEMIDE 40 MG/4 ML VIAL IV SCH (10:00)
--- NOTE | 2020-06-02 10:14 | NUR ---
PARACENTESIS DONE IN ULTRASOUND BY DR SAGASTUME. VSS 119/[id number]%. PT TOLERATED PROCEDURE WELL. 1300 ML OF ASCITES FLUID REMOVED AND SENT TO LAB
--- NOTE | 2020-06-02 10:45 | NUR ---
patient back from procedure.
[2020-06-02] MEDS ORDERED: DEXTROSE (50%) 50ML SYRG IV PRN (12:00)
[2020-06-02] MEDS: SPIRONOLACTONE 25 MG TAB PO SCH (12:14)
[2020-06-02 13:00] VITALS: BP 120/79
--- NOTE | 2020-06-02 15:35 | NUR ---
DOCTOR KOTHARI AT BEDSIDE DISCUSSING POC WITH PATIENT, PATIENT VERBALIZES AND AGREES WITH POC. DOCTOR KOTHARI INFORMED THAT LASIX WAS HELD THIS AM AND PATIENTS POTASSIUM WAS 3.3. NEW ORDERS RECEIVED, SEE EMR FOR ORDERS.
[2020-06-02] MEDS ORDERED: POTASSIUM CHL 20 Meq TABLET PO ONE (15:45)
[2020-06-02 16:12] VITALS: BP 127/77
[2020-06-02] MEDS: ACCU-CHEK COMFORT CURVE STRIP VI SCH ×2 (17:06→21:32)
[2020-06-02] MEDS: InsuLIN REG 1unit/0.01ml Soln (100units/ml) SC SCH ×2 (17:07→21:32)
--- NOTE | 2020-06-02 19:16 | NUR ---
Opening Shift Note Assumed care of patient, awake and alert. No S/S of distress/SOB or pain. Instructed on POC and to call for assist PRN, will continue to monitor for changes Q1hr and PRN. Side rails up x2. Bed locked in lowest position. Call light within reach.
--- NOTE | 2020-06-02 20:28 | NUR ---
Called Dr. Ma called re:allergic reaction from dinner. Received order Benadryl 25mg IV ONCE. Continue care.
[2020-06-02] MEDS ORDERED: diphenhdrAMINE HCL 50 MG/1 ML VL IV ONE (20:30)
[2020-06-02 22:00] VITALS: BP 114/74
[2020-06-03 05:12] VITALS: BP 109/76
[2020-06-03 06:16] LABS: Basophils # (auto) 0.1 10 ^3/uL (0-0.2); Basophils % (auto) 2.3 % (0.0-2.0); Eosinophils # (auto) 0.1 10 ^3/uL (0-0.8); Eosinophils % (auto) 3.4 % (0.0-7.0); Hemoglobin 12.5 g/dL (12.2-16.2); Lymphocytes # (auto) 1.4 10 ^3/uL (0.4-5.4); Lymphocytes % (auto) 33.9 % (10.0-50.0); Mean Corpuscular Hemoglobin 33.7 pg (28.0-32.0); Mean Corpuscular Hgb Conc. 33.7 g/dL (32.0-36.0); Monocytes # (auto) 0.7 10 ^3/uL (0-1.3); Monocytes % (auto) 16.3 % (0.0-12.0); Neutrophils # (auto) 1.8 10 ^3/uL (1.6-8.6); Neutrophils % (auto) 44.1 % (37.0-80.0); Nucleated Red Blood Cells % 0.1 %; Platelet Count (auto) 67 10^3/uL (140-450); Red Cell Distribution Width 15.1 % (11.8-14.3)
[2020-06-03 06:38] LABS: Potassium 4.3 mmol/L (3.5-5.1)
[2020-06-03 06:46] LABS: BUN/Creatinine Ratio 13.6; Calcium 7.7 mg/dL (8.5-10.1); Magnesium 2.1 mg/dL (1.6-2.6)
[2020-06-03] MEDS: InsuLIN REG 1unit/0.01ml Soln (100units/ml) SC SCH ×4 (06:56→22:00)
[2020-06-03] MEDS: ACCU-CHEK COMFORT CURVE STRIP VI SCH ×4 (06:57→22:02)
[2020-06-03] MEDS: MORPHINE SULF INJ 2 MG/ML SYRINGE 1ML IV PRN ×3 (08:01→22:06)
[2020-06-03 09:00] VITALS: BP 122/79
[2020-06-03] MEDS: SPIRONOLACTONE 25 MG TAB PO SCH (10:08)
[2020-06-03] MEDS: FUROSEMIDE 40 MG/4 ML VIAL IV SCH (10:08)
[2020-06-03] MEDS: ENOXAPARIN SOD 40 MG/0.4 ML SYRINGE SC SCH (10:09)
[2020-06-03 13:00] VITALS: BP 114/74
[2020-06-03 17:00] VITALS: BP 112/69
--- NOTE | 2020-06-03 17:45 | NUR ---
MD at bedside Dr. Ma was in to see patient and MD left new orders. Incentive spirometer given to patient after instruction given to her per MD's order. Patient verbalized understanding and patient to be using same after.
[2020-06-03 22:00] VITALS: BP 109/73
[2020-06-04 05:00] VITALS: BP 114/65
[2020-06-04] MEDS: InsuLIN REG 1unit/0.01ml Soln (100units/ml) SC SCH ×4 (06:28→21:56)
[2020-06-04] MEDS: ACCU-CHEK COMFORT CURVE STRIP VI SCH ×4 (06:28→21:55)
[2020-06-04 06:35] LABS: Basophils # (auto) 0.1 10 ^3/uL (0-0.2); Eosinophils # (auto) 0.1 10 ^3/uL (0-0.8); Eosinophils % (auto) 3.8 % (0.0-7.0); Hematocrit 36.9 % (36.0-46.0); Hemoglobin 12.4 g/dL (12.2-16.2); Lymphocytes # (auto) 1.2 10 ^3/uL (0.4-5.4); Lymphocytes % (auto) 32.3 % (10.0-50.0); Mean Corpuscular Hgb Conc. 33.7 g/dL (32.0-36.0); Mean Corpuscular Volume 100.8 fL (80.0-100.0); Monocytes # (auto) 0.7 10 ^3/uL (0-1.3); Neutrophils # (auto) 1.7 10 ^3/uL (1.6-8.6); Neutrophils % (auto) 43.9 % (37.0-80.0); Nucleated Red Blood Cells % 0.1 %; Platelet Count (auto) 67 10^3/uL (140-450); Red Blood Cells 3.66 10^6/uL (4.0-5.20); Red Cell Distribution Width 14.4 % (11.8-14.3); White Blood Cell 3.8 10^3/uL (4.4-10.8)
[2020-06-04 07:03] LABS: BUN/Creatinine Ratio 13.9; Calcium 7.9 mg/dL (8.5-10.1); Potassium 4.7 mmol/L (3.5-5.1)
[2020-06-04 09:00] VITALS: BP_SYST 121; BP_SYST 141; BP_DIAS 66; BP_DIAS 77
[2020-06-04] MEDS: SPIRONOLACTONE 25 MG TAB PO SCH (11:02)
[2020-06-04] MEDS: FUROSEMIDE 40 MG/4 ML VIAL IV SCH (11:03)
[2020-06-04] MEDS: ENOXAPARIN SOD 40 MG/0.4 ML SYRINGE SC SCH (11:04)
--- NOTE | 2020-06-04 11:45 | NUR ---
Patient c/o itching, sob and faint rash in her torso. Patient stated that it was because she had morphine sulfate as she has allergy to sulfate, sulfites, sulfa, sulfur. Phoned Dr. Ma about it and gave new order.
[2020-06-04] MEDS: diphenhdrAMINE HCL 25 MG CAP PO PRN ×2 (12:03→20:37)
[2020-06-04 13:00] VITALS: BP 114/74
--- NOTE | 2020-06-04 14:15 | NUR ---
Dr. Ma phoned and notified that patient continue to c/o not feeling well and more short of breathe. gave new orders.
--- NOTE | 2020-06-04 15:39 | NUR ---
Nutrition Assessment Notes Please refer to link for full assessment notes. Est Energy needs: 4326-4986 kcals (17-20 kcal/kgBW) Est Protein needs: 58-72 gms/day (0.8-1.0 gm/kgBW) Will continue to monitor and reassess prn. Addendum: 06/04/20 at [address] Amended: Links added.
[2020-06-04 17:00] VITALS: BP 113/77
--- NOTE | 2020-06-04 17:00 | NUR ---
Report given to Dana JC by phone.
--- NOTE | 2020-06-04 18:11 | NUR ---
Patient transferred to 232 per w/c accompanied by law writer to r/o ana m. Patient aaox4 and was in no pain but continue to c/o sob and coughing.
--- NOTE | 2020-06-04 18:15 | NUR ---
TRANSFERRED Patient received from BABITA Blair on [facility]. Patient oriented to CANDY WEATHERS RN primary RN, unit, room, bed, and unit policies regarding patient care and visiting hours. Patient on continuous telemetry monitoring, tele box #1 and telemetry reading on arrival to unit is SR. Patient placed on 2L bedside oxygen and encouraged to call if they need something. All questions and concerns addressed, patient verbalized understanding.
--- NOTE | 2020-06-04 19:40 | NUR ---
Opening Shift Note Assumed care of patient. Patient is wake, alert, and oriented X 4. No S/S of respiratory distress noted. No pain reported. Respirations are regular and non-labored. Pt is on 3 LPM NC with SpO2 97%. Bed in lowest locked position, bed rails x 2 up, call light is within reach. Patient was instructed on POC and to call for assistance as needed. Will continue to monitor for changes Q1hr and PRN.
[2020-06-04 20:00] VITALS: BP 109/69
[2020-06-04 22:00] VITALS: BP 109/69
[2020-06-05 05:00] VITALS: BP 120/64
--- NOTE | 2020-06-05 05:18 | NUR ---
Received report on patient. Room ready, awaiting transfer of patient from [facility].
--- NOTE | 2020-06-05 05:22 | NUR ---
Transfer Patient will be transferred to room 215A via wheelchair. Report given to BABITA Francis. All patient's questions and concerns addressed, patient verbalized understanding.
--- NOTE | 2020-06-05 05:48 | NUR ---
Received patient from Francine from [facility]. Patient in bed in lowest locked position x2 side rails, call light within reach. Will continue to monitor.
[2020-06-05] MEDS: ACCU-CHEK COMFORT CURVE STRIP VI SCH ×2 (06:45→11:24)
[2020-06-05] MEDS: InsuLIN REG 1unit/0.01ml Soln (100units/ml) SC SCH ×2 (06:49→11:25)
--- NOTE | 2020-06-05 08:05 | NUR ---
OPENING SHIFT NOTE: PATIENT AWAKE RESTING IN BED EATING BREAKFAST. RESPIRATIONS EVEN AND UNLABORED, NOTED NO SIGNS OF DISTRESS. PATIENT REPORTS FEELING MUCH BETTER, AND FEELING MORE ABLE TO PERFORM ADLS. UPDATE ON PLAN OF CARE. FALL PRECAUTIONS IN PLACE, CALL LIGHT WITHIN REACH. WILL CONTINUE TO MONITOR.
[2020-06-05 09:00] VITALS: BP 108/69
[2020-06-05] MEDS: SPIRONOLACTONE 25 MG TAB PO SCH (09:09)
[2020-06-05] MEDS: FUROSEMIDE 40 MG/4 ML VIAL IV SCH (09:09)
[2020-06-05] MEDS: ENOXAPARIN SOD 40 MG/0.4 ML SYRINGE SC SCH (09:09)
--- NOTE | 2020-06-05 10:42 | NUR ---
MD SANIYA YO.
[2020-06-05 10:55] VITALS: BP 120/64
[2020-06-05 12:45] VITALS: BP 102/66
--- NOTE | 2020-06-05 13:04 | NUR ---
DISCHARGE: Discharge instructions given as ordered. Encourage to follow up with PMD as instructed. All questions and concerns addressed. Patient verbalized understanding. IV removed with catheter intact, pressure dressing applied Telemetry unit returned to ICU. Patient taken to vehicle via wheelchair with all personal belongings, accompanied by staff and family member. No distress noted at time of departure.
== END 2020-06-05 13:17 | disposition home or self-care (01) | DRG 280 ==
LOC: ER 16:43 → TELE-WESTW 16:44 → TELE-EAST 06-04 18:00 → TELE-CENTR 06-05 05:47
PROVIDERS: ADMIT Internal Medicine; ATTEND Internal Medicine
PROC: 0W9G3ZZ Drainage of Peritoneal Cavity, Percutaneous Approach (ICD-10-PCS; principal; 2020-06-02)
DX: K70.31 Alcoholic cirrhosis of liver with ascites (principal); F10.20 Alcohol dependence, uncomplicated; B19.20 Unspecified viral hepatitis C without hepatic coma; E11.9 Type 2 diabetes mellitus without complications; D69.6 Thrombocytopenia, unspecified; J98.11 Atelectasis; I10 Essential (primary) hypertension; Z20.828 Contact with and (suspected) exposure to other viral communicable diseases; Z86.73 Personal history of transient ischemic attack (TIA), and cerebral infarction without residual deficits; Z79.4 Long term (current) use of insulin; Z80.9 Family history of malignant neoplasm, unspecified
CPT/HCPCS: 10022; 36415; 71045; 76700; 76942; 80048; 80053; 82140; 82962; 83690; 83735; 83986; 84100; 85007; 85025; 85027; 85610; 85730; 87205; 87426; 89051; G0378; J1815; J2405

== ENCOUNTER 2020-06-15 23:27 | Emergency (ER) | payer MEDICAID ==
[~2020-06-15] VITALS: Ht 157.5 cm; Wt 72.1 kg
[~2020-06-15 23:27] MED LIST changes: +CYA100I PO; +FOLI1TAB6 PO
[2020-06-15 23:51] VITALS: BP 130/73
== END 2020-06-16 01:02 | disposition left against medical advice (07) ==
LOC: ER 23:27
DX: M79.606 Pain in leg, unspecified (principal); Z53.21 Procedure and treatment not carried out due to patient leaving prior to being seen by health care provider
CPT/HCPCS: 73590

== ENCOUNTER 2020-06-18 19:48 | Emergency (ER) | payer MEDICAID ==
[~2020-06-18] VITALS: Ht 152.4 cm; Wt 72.6 kg
[2020-06-18] MEDS ORDERED: SODIUM CHLORIDE 0.9% 1,000 ML IVB ONE (20:43)
[2020-06-18] MEDS ORDERED: FOLIC ACID 1 MG, MULTIPLE VITAMIN 10 ML, MAGNESIUM SULF SDV 50% 8 MEQ, THIAMINE INJ 100... INJ STA ×5 (20:43)
[2020-06-18] MEDS ORDERED: THIAMINE HCL 100 MG TAB PO ONE (20:45)
[2020-06-18 20:48] LABS: Basophils # (auto) 0.1 10 ^3/uL (0-0.2); Basophils % (auto) 0.7 % (0.0-2.0); Eosinophils # (auto) 0.5 10 ^3/uL (0-0.8); Eosinophils % (auto) 5.2 % (0.0-7.0); Hematocrit 40.9 % (36.0-46.0); Lymphocytes # (auto) 2.9 10 ^3/uL (0.4-5.4); Lymphocytes % (auto) 33.2 % (10.0-50.0); Mean Corpuscular Hemoglobin 33.8 pg (28.0-32.0); Mean Corpuscular Hgb Conc. 34.3 g/dL (32.0-36.0); Mean Corpuscular Volume 98.5 fL (80.0-100.0); Monocytes # (auto) 0.9 10 ^3/uL (0-1.3); Monocytes % (auto) 10.8 % (0.0-12.0); Neutrophils # (auto) 4.4 10 ^3/uL (1.6-8.6); Neutrophils % (auto) 50.1 % (37.0-80.0); Nucleated Red Blood Cells % 0.2 %; Platelet Count (auto) 86 10^3/uL (140-450); Red Blood Cells 4.15 10^6/uL (4.0-5.20); Red Cell Distribution Width 14.8 % (11.8-14.3); White Blood Cell 8.8 10^3/uL (4.4-10.8)
[2020-06-18 21:04] LABS: Albumin 2.4 g/dL (3.4-5.0); Calcium 8.5 mg/dL (8.5-10.1); Magnesium 2.4 mg/dL (1.6-2.6); Potassium 3.9 mmol/L (3.5-5.1)
[2020-06-18 21:08] LABS: Bilirubin, Total 2.2 mg/dL (0.2-1.0); Total Protein 8.5 g/dL (6.4-8.2)
[2020-06-18 21:10] LABS: Urine WBC None Seen /hpf (0 - 5)
[2020-06-18 21:20] LABS: INR 1.19 (0.9-1.15); Partial Thromboplastin Time 28.2 sec (23.0-31.2)
[2020-06-18 21:23] LABS: Acetaminophen < 2.0 ug/mL (10-30); Salicylate < 1.7 mg/dL (2.8-20.0)
[2020-06-18 21:42] LABS: Amphetamine Screen, Urine NEGATIVE (NEGATIVE); Barbiturate Scree,Urine NEGATIVE (NEGATIVE); Benzodiazephine Screen, Urine NEGATIVE (NEGATIVE); Cannabinoid Screen, Urine NEGATIVE (NEGATIVE); Cocaine Screen, Urine NEGATIVE (NEGATIVE); Opiate Scree,Urine NEGATIVE (NEGATIVE); Phencyclidine Screen, Urine NEGATIVE (NEGATIVE)
[2020-06-18 21:48] LABS: Urine Bacteria FEW /hpf (None Seen); Urine Blood TRACE /uL (Negative); Urine Specific Gravity 1.003 (1.001-1.035)
[2020-06-18] MEDS ORDERED: SODIUM CHLORIDE 0.9% 500 ML IV ONE (23:15)
[2020-06-19 04:26] VITALS: BP 108/67
== END 2020-06-19 04:47 | disposition home or self-care (01) ==
LOC: ER 19:52
DX: G92 Toxic encephalopathy (principal); R79.89 Other specified abnormal findings of blood chemistry; F10.129 Alcohol abuse with intoxication, unspecified; Y90.9 Presence of alcohol in blood, level not specified; I10 Essential (primary) hypertension; E11.9 Type 2 diabetes mellitus without complications
CPT/HCPCS: 36415; 71045; 80053; 80307; 80320; 80329; 81001; 83735; 85025; 85610; 85730; 93005; 96365; 96366; 99285; J3411; J3475; J7030; 96361

== ENCOUNTER 2020-07-15 14:48 | Inpatient (IN) | payer MEDICAID ==
[~2020-07-15] VITALS: Ht 157.5 cm; Wt 71.0 kg
[2020-07-15] MEDS ORDERED: PANTOPRAZOLE 40 MG/10 ML VIAL INJ IV STA (14:58)
[2020-07-15] MEDS ORDERED: MORPHINE SULFATE 4 MG/ML SYR/VIAL IV ONE (15:00)
[2020-07-15] MEDS ORDERED: ONDANSETRON HCL 4 MG/2 ML VIAL IV ONE (15:00)
[2020-07-15 18:04] LABS: Basophils # (auto) 0.1 10 ^3/uL (0-0.2); Basophils % (auto) 2.2 % (0.0-2.0); Eosinophils # (auto) 0.1 10 ^3/uL (0-0.8); Eosinophils % (auto) 1.2 % (0.0-7.0); Hematocrit 41.4 % (36.0-46.0); Hemoglobin 14.2 g/dL (12.2-16.2); Lymphocytes # (auto) 0.9 10 ^3/uL (0.4-5.4); Lymphocytes % (auto) 16.7 % (10.0-50.0); Mean Corpuscular Hemoglobin 33.5 pg (28.0-32.0); Mean Corpuscular Hgb Conc. 34.3 g/dL (32.0-36.0); Mean Corpuscular Volume 97.6 fL (80.0-100.0); Monocytes # (auto) 0.8 10 ^3/uL (0-1.3); Monocytes % (auto) 15.1 % (0.0-12.0); Neutrophils # (auto) 3.4 10 ^3/uL (1.6-8.6); Neutrophils % (auto) 64.8 % (37.0-80.0); Nucleated Red Blood Cells % 0.1 %; Platelet Count (auto) 66 10^3/uL (140-450); Red Blood Cells 4.24 10^6/uL (4.0-5.20); Red Cell Distribution Width 15.1 % (11.8-14.3); White Blood Cell 5.3 10^3/uL (4.4-10.8)
[2020-07-15 18:17] LABS: INR 1.4 (0.9-1.15); Partial Thromboplastin Time 30.2 sec (23.0-31.2)
[2020-07-15 18:18] LABS: Albumin 2.2 g/dL (3.4-5.0); BUN/Creatinine Ratio 9.5; Calcium 8.1 mg/dL (8.5-10.1); Potassium 3.8 mmol/L (3.5-5.1)
[2020-07-15 18:20] LABS: Bilirubin, Total 5.2 mg/dL (0.2-1.0); Total Protein 8.6 g/dL (6.4-8.2)
[2020-07-15] MEDS ORDERED: NITROGLYCERIN 0.4 MG SL TAB SL PRN (21:30)
[2020-07-15] MEDS ORDERED: ACETAMINOPHEN 325 MG TAB PO PRN (21:30)
[2020-07-15] MEDS ORDERED: MORPHINE SULF INJ 2 MG/ML SYRINGE 1ML IV PRN ×2 (21:30→21:45)
[2020-07-15] MEDS ORDERED: ONDANSETRON HCL 4 MG/2 ML VIAL IV PRN (21:30)
[2020-07-15] MEDS ORDERED: DEXTROSE (50%) 50ML SYRG IV PRN (22:00)
[2020-07-15] MEDS ORDERED: INSULIN LANTUS (GLARGINE) 1 /0.01ml (100units/ml) SC SCH (22:00)
[2020-07-15] MEDS: ACCU-CHEK COMFORT CURVE STRIP VI SCH (22:00)
[2020-07-15] MEDS ORDERED: InsuLIN REG 1unit/0.01ml Soln (100units/ml) SC SCH (22:00)
[2020-07-15] MEDS ORDERED: HEPARIN SODIUM (PORCINE) 5000 UNITS/ML 1ML VIAL SC SCH (22:00)
[2020-07-15] MEDS ORDERED: LORazepam 2MG/ML-1ML VIAL ONE (22:12)
[2020-07-15] MEDS: LORazepam 2MG/ML-1ML VIAL IV PRN (22:13)
[2020-07-15 22:26] LABS: Urine Bacteria NONE SEEN /hpf (None Seen); Urine Blood 2+ /uL (Negative); Urine Hyaline Cast FEW /lpf (0 - 2); Urine Mucus FEW (None Seen); Urine Specific Gravity 1.021 (1.001-1.035); Urine WBC 2 /hpf (0 - 5)
--- NOTE | 2020-07-15 22:29 | NUR ---
ER CALLED GI CONSULT WITH DR. SOFIA STYLES.
--- NOTE | 2020-07-15 22:45 | NUR ---
Telemetry admit from ER NOAMYASMIN admitted to Telemetry unit, SBAR not received. Patient oriented to Adilia loza RN, unit, room, bed, and unit policies regarding patient care and visiting hours. Patient now on continuous telemetry monitoring, tele box #71 and telemetry reading on arrival to unit is SR in the 90s. Patient weighed by bedscale and encouraged to call if they need something. All questions and concerns addressed, patient verbalized understanding.
[2020-07-15] MEDS ORDERED: PHYTONADIONE (VIT K)10 MG/ML 1ML VIAL SUBCUT ONE (23:15)
[2020-07-16] MEDS ORDERED: POTA10TA32 PO (00:02)
[2020-07-16] MEDS ORDERED: FURO20TA3 PO ×2 (00:04→18:35)
[2020-07-16] MEDS ORDERED: SPIR50TA5 PO (00:05)
[2020-07-16 05:00] VITALS: BP 131/87
[2020-07-16 05:57] LABS: Basophils # (auto) 0.1 10 ^3/uL (0-0.2); Basophils % (auto) 1.1 % (0.0-2.0); Eosinophils # (auto) 0 10 ^3/uL (0-0.8); Eosinophils % (auto) 0.8 % (0.0-7.0); Hematocrit 37.4 % (36.0-46.0); Lymphocytes % (auto) 17.7 % (10.0-50.0); Mean Corpuscular Hemoglobin 33.9 pg (28.0-32.0); Mean Corpuscular Hgb Conc. 34.7 g/dL (32.0-36.0); Mean Corpuscular Volume 97.8 fL (80.0-100.0); Monocytes # (auto) 0.7 10 ^3/uL (0-1.3); Monocytes % (auto) 12.8 % (0.0-12.0); Neutrophils # (auto) 3.6 10 ^3/uL (1.6-8.6); Neutrophils % (auto) 67.6 % (37.0-80.0); Nucleated Red Blood Cells % 0.1 %; Platelet Count (auto) 66 10^3/uL (140-450); Red Blood Cells 3.82 10^6/uL (4.0-5.20); Red Cell Distribution Width 15.3 % (11.8-14.3); White Blood Cell 5.4 10^3/uL (4.4-10.8)
[2020-07-16] MEDS: FUROSEMIDE 20 MG/2 ML VIAL IV SCH ×2 (06:15→18:30)
[2020-07-16 06:16] LABS: Potassium 4.1 mmol/L (3.5-5.1)
[2020-07-16 06:28] LABS: Albumin 2.1 g/dL (3.4-5.0); BUN/Creatinine Ratio 15.2; Calcium 7.9 mg/dL (8.5-10.1); Magnesium 2.2 mg/dL (1.6-2.6); Total Protein 7.8 g/dL (6.4-8.2)
[2020-07-16] MEDS: ACCU-CHEK COMFORT CURVE STRIP VI SCH ×3 (06:30→18:18)
[2020-07-16] MEDS: LORazepam 2MG/ML-1ML VIAL IV PRN (06:30)
[2020-07-16] MEDS: InsuLIN REG 1unit/0.01ml Soln (100units/ml) SC SCH ×3 (06:33→18:26)
[2020-07-16 09:00] VITALS: BP 123/75
[2020-07-16] MEDS ORDERED: cefTRIAXone 1GM/50ML D5W 50 ML IV SCH (09:00)
[2020-07-16] MEDS ORDERED: SPIRONOLACTONE 25 MG TAB PO SCH (10:00)
[2020-07-16 13:00] VITALS: BP 112/63
--- NOTE | 2020-07-16 14:00 | NUR ---
s/p Paracentesis Paracentesis done by Dr. Castaneda. Obtained 2,400 ml light karlos output. Patient tolerated the procedure well. Pressure applied on puncture site and band aid applied to the site. No bleeding noted from the site. Will continue to monitor patient.
--- NOTE | 2020-07-16 14:10 | NUR ---
Assessment Patient is a 59 year old female who is alert and oriented. Prior to admission patient lived home with family and functioned independently. Patient informed me she is able to care for her own ADLs. Per patient she will return home to her prior living arrangements post discharge and family will transport her home or might need a taxi voucher. Patient has been advised that she has a consult for home health evaluation. Informed patient she has a right to speak to a social media director regarding all care. I informed patient she has a right to participate in any and all discharge planning.Patient verbalized understanding and agreed to discharge plan. Faxed clinical information to [facility]. Per Brandie with [facility] patient has been accepted and service to start within 24-48hrs upon d/c day. Obtain auth from [facility] [id number]. Addendum: 07/16/20 at 1412 by BEATRIS DEUTSCH Amended: Links added.
[2020-07-16 17:00] VITALS: BP 125/82
--- NOTE | 2020-07-16 19:05 | NUR ---
Opening Shift Note Assumed care of patient, awake and alert. No S/S of distress/SOB or pain or nausea. Bed in lowest locked position, side rails up x2, call light within reach. Instructed on POC and to call for assist PRN, will continue to monitor for changes Q1hr and PRN.
--- NOTE | 2020-07-16 20:00 | NUR ---
Spoke with Dr. Olga Wiley, confirmed order for discharge, will implement and continue to monitor.
[2020-07-16] MEDS ORDERED: THIA50CA PO (20:07)
[2020-07-16 21:14] VITALS: BP 108/64
[2020-07-16 22:00] VITALS: BP 108/64
--- NOTE | 2020-07-16 22:22 | NUR ---
Discharge Discharge instructions given as ordered. Encourage to follow up with PMD as instructed, phone number and address provided. All questions and concerns addressed. Patient verbalized understanding. Home medications held in Pharmacy returned to patient. IV to left hand removed with catheter intact, pressure dressing applied. Telemetry unit returned to ICU via bullet and monitor technicians notified. Patient refusing ordered 22:00 medications states, "I don't want them, I just want to go home." Patient taken to vehicle via wheelchair with all personal belongings, accompanied by staff. No distress noted at time of departure.
[2020-07-17] MEDS ORDERED: THIAMINE HCL 100 MG TAB PO SCH (10:00)
[2020-07-17] MEDS ORDERED: FOLIC ACID 1 MG TAB PO SCH (10:00)
== END 2020-07-16 22:22 | disposition home health service (06) | DRG 280 ==
LOC: ER 14:48 → EDBD 14:48 → TELE 14:49 → TELE-WESTW 22:22
PROVIDERS: ADMIT Internal Medicine; ATTEND Internal Medicine
PROC: 0W9G3ZZ Drainage of Peritoneal Cavity, Percutaneous Approach (ICD-10-PCS; principal; 2020-07-16)
DX: K70.31 Alcoholic cirrhosis of liver with ascites (principal); E11.9 Type 2 diabetes mellitus without complications; G43.909 Migraine, unspecified, not intractable, without status migrainosus; F10.20 Alcohol dependence, uncomplicated; I10 Essential (primary) hypertension; Z98.51 Tubal ligation status; Z88.0 Allergy status to penicillin; Z88.2 Allergy status to sulfonamides; Z80.8 Family history of malignant neoplasm of other organs or systems; Z82.49 Family history of ischemic heart disease and other diseases of the circulatory system
CPT/HCPCS: 10022; 36415; 76700; 76942; 80053; 81001; 82962; 83690; 83735; 84100; 85025; 85610; 85730; 87205; 89051; 93005; 96374; 96375; C9113; G0378; J1815; J2405; J3430

== ENCOUNTER 2020-09-08 19:30 | Emergency (ER) | payer MEDICAID ==
[~2020-09-08] VITALS: Ht 157.5 cm; Wt 72.6 kg
[~2020-09-08 19:30] MED LIST changes: +FURO20TA3 PO; +POTA10TA32 PO; +SPIR50TA5 PO; +THIA50CA PO
[2020-09-08 19:35] VITALS: BP 141/84
== END 2020-09-09 03:29 | disposition left against medical advice (07) ==
LOC: ER 19:32
DX: R14.0 Abdominal distension (gaseous) (principal); R60.9 Edema, unspecified; R11.2 Nausea with vomiting, unspecified; Z53.21 Procedure and treatment not carried out due to patient leaving prior to being seen by health care provider

== ENCOUNTER 2020-09-16 17:44 | Inpatient (IN) | payer MEDICAID ==
[~2020-09-16] VITALS: Ht 162.6 cm; Wt 71.6 kg
[2020-09-16] MEDS ORDERED: MORPHINE SULFATE 4 MG/ML SYR/VIAL IV PRN (20:30)
[2020-09-16] MEDS ORDERED: cefTRIAXone 1GM/50ML D5W 50 ML IV ONE (20:30)
[2020-09-16] MEDS ORDERED: IOHEXOL 300 MG/ML 100ML BOTTLE IJ ONE (20:49)
[2020-09-16 21:35] LABS: Basophils # (auto) 0 10 ^3/uL (0-0.2); Basophils % (auto) 0.8 % (0.0-2.0); Eosinophils # (auto) 0.1 10 ^3/uL (0-0.8); Eosinophils % (auto) 2.1 % (0.0-7.0); Hematocrit 39.7 % (36.0-46.0); Hemoglobin 13.3 g/dL (12.2-16.2); Lymphocytes # (auto) 1.5 10 ^3/uL (0.4-5.4); Lymphocytes % (auto) 26.7 % (10.0-50.0); Mean Corpuscular Hemoglobin 33.3 pg (28.0-32.0); Mean Corpuscular Hgb Conc. 33.6 g/dL (32.0-36.0); Monocytes # (auto) 0.8 10 ^3/uL (0-1.3); Monocytes % (auto) 14.3 % (0.0-12.0); Neutrophils # (auto) 3.1 10 ^3/uL (1.6-8.6); Neutrophils % (auto) 56.1 % (37.0-80.0); Platelet Count (auto) 85 10^3/uL (140-450); Red Blood Cells 4.01 10^6/uL (4.0-5.20); Red Cell Distribution Width 15.2 % (11.8-14.3); White Blood Cell 5.6 10^3/uL (4.4-10.8)
[2020-09-16 21:43] LABS: Alanine Aminotransferase 113 U/L (13-56); Albumin 2.1 g/dL (3.4-5.0); Anion Gap 9 (5-15); Aspartate Aminotransferase 258 U/L (15-37); BUN/Creatinine Ratio 11.8; Blood Urea Nitrogen 9 mg/dL (7-18); Calcium 7.7 mg/dL (8.5-10.1); Carbon Dioxide 24 mmol/L (21-32); Chloride 97 mmol/L (98-107); GFR African American 101 mL/min; GFR Non-African American 83 mL/min; Glucose 226 mg/dL (74-106); Lipase 375 U/L (73-393); Potassium 4.3 mmol/L (3.5-5.1); Sodium 130 mmol/L (136-145)
[2020-09-16 21:44] LABS: Alkaline Phosphatase 258 U/L (45-117); Bilirubin, Total 4.2 mg/dL (0.2-1.0); Total Protein 8.5 g/dL (6.4-8.2)
[2020-09-16 21:47] LABS: Lactic Acid w/Reflex 2.8 mmol/L (0.4-2.0)
[2020-09-16 21:51] LABS: INR 1.27 (0.9-1.15); Partial Thromboplastin Time 28.3 sec (23.0-31.2)
[2020-09-17] VITALS (9 sets, daily range): BP systolic 140–153; BP diastolic 84–99
[2020-09-17] MEDS ORDERED: NITROGLYCERIN 0.4 MG SL TAB SL PRN (01:15)
[2020-09-17] MEDS ORDERED: DEXTROSE (50%) 50ML SYRG IV PRN (01:15)
[2020-09-17] MEDS ORDERED: MORPHINE SULF INJ 2 MG/ML SYRINGE 1ML IV PRN ×2 (01:15)
[2020-09-17] MEDS ORDERED: ONDANSETRON HCL 4 MG/2 ML VIAL IM PRN (01:15)
[2020-09-17 07:05] LABS: Basophils # (auto) 0.1 10 ^3/uL (0-0.2); Basophils % (auto) 1.6 % (0.0-2.0); Eosinophils # (auto) 0.1 10 ^3/uL (0-0.8); Eosinophils % (auto) 1.8 % (0.0-7.0); Hematocrit 37.4 % (36.0-46.0); Hemoglobin 12.8 g/dL (12.2-16.2); Lymphocytes # (auto) 1.4 10 ^3/uL (0.4-5.4); Lymphocytes % (auto) 28.7 % (10.0-50.0); Mean Corpuscular Hemoglobin 33.5 pg (28.0-32.0); Mean Corpuscular Hgb Conc. 34.1 g/dL (32.0-36.0); Mean Corpuscular Volume 98.1 fL (80.0-100.0); Monocytes # (auto) 0.8 10 ^3/uL (0-1.3); Monocytes % (auto) 15.6 % (0.0-12.0); Neutrophils # (auto) 2.5 10 ^3/uL (1.6-8.6); Neutrophils % (auto) 52.3 % (37.0-80.0); Platelet Count (auto) 79 10^3/uL (140-450); Red Blood Cells 3.81 10^6/uL (4.0-5.20); Red Cell Distribution Width 15.5 % (11.8-14.3); White Blood Cell 4.9 10^3/uL (4.4-10.8)
[2020-09-17 07:34] LABS: Potassium 3.8 mmol/L (3.5-5.1)
[2020-09-17 07:42] LABS: Bilirubin, Total 4.2 mg/dL (0.2-1.0); Calcium 7.7 mg/dL (8.5-10.1)
[2020-09-17] MEDS: ACCU-CHEK COMFORT CURVE STRIP VI SCH ×4 (08:28→21:40)
[2020-09-17] MEDS: InsuLIN REG 1unit/0.01ml Soln (100units/ml) SC SCH ×4 (08:36→21:39)
[2020-09-17] MEDS: GABAPENTIN 300 MG CAP PO SCH ×3 (08:55→21:36)
[2020-09-17 09:26] LABS: Lactic Acid w/Reflex 2.9 mmol/L (0.4-2.0)
[2020-09-17] MEDS: THIAMINE HCL 100 MG TAB PO SCH (10:18)
[2020-09-17] MEDS: FOLIC ACID 1 MG TAB PO SCH (10:18)
--- NOTE | 2020-09-17 10:32 | NUR ---
Assessment Patient is a 59 year old female, patient is alert and oriented. Patient cognitive abilities are intact. Patient stated prior to ER admission to [facility], patient could do all ADL's and ambulate independently. Patient states that she lives with her ex- Rene ([phone]), and daughter. Patient states that she has history of being a diabetic. Patient stated that she has history with alcoholism. Patient states that she will return home post discharge and her daughter will provide transportation post discharge. Patient was receptive to receive Advance Directive forms. Discharge planning: Patient will return home post discharge, patient will follow up care with her PCP post discharge. Patient has all supplies to resume home care for diabetes. SW provide resources for inpatient and outpatient AA treatment centers. SW provided patient with Advance Directive forms. Addendum: 09/17/20 at 1040 by KARYN DEUTSCH Amended: Links added.
--- NOTE | 2020-09-17 11:32 | NUR ---
PATIENT UNDERWENT PARACENTESIS IN .S. DEPT PER DR SAGASTUME UNDER LOCAL ANESTHETIC. SAO2 92-93% ON RA - O2 APPLIED AT 2L PER NC - SAO2 96-97%.PATIENT RONIT. WELL. 4550 ML THICK STRAW COLORED LIQ OBTAINED. BANDAID APPLIED TO RT LOWER ABD. SEE VS FLOW SHEET FOR VITALS. REPORT CALLED TO CRUZ JC IN ER.
[2020-09-17] MEDS ORDERED: FOLIC ACID 1 MG, MULTIPLE VITAMIN 10 ML, MAGNESIUM SULF SDV 50% 8 MEQ, THIAMINE INJ 100... INJ SCH ×5 (12:00)
--- NOTE | 2020-09-17 14:07 | NUR ---
MS admit from ER NOAM,YASMIN admitted to tele/MS after SBAR received. Patient oriented to Johnnie loza RN, unit, room, bed, and unit policies regarding patient care and visiting hours. Patient weighed by bedscale and encouraged to call if they need something. All questions and concerns addressed, patient verbalized understanding. Note: Patient admitted to room 275B per w/c accompanied by ER staff s/p paracentesis. Report received from Aislinn JC by phone prior to patient's admission. Patient aaox4, pleasant and cooperative and voiced no c/o pain at this time. Patient put on O2 at 2L/NC. Admission asessment done charted. Patient orientated to staff, unit and routine. Plan of care, meds, treatments and safety discussed with patint and patient verbalized understanding. Bed was in lowest poisition with siderails on x2, call light within patient's reach. Will continue to monitor patient.
[2020-09-17] MEDS ORDERED: ALPRAZolam 0.25 MG TAB PO PRN (19:15)
[2020-09-17] MEDS ORDERED: GABAPENTIN 300 MG CAP PO ONE (19:15)
[2020-09-17] MEDS ORDERED: LORazepam 2MG/ML-1ML VIAL IV PRN (19:15)
[2020-09-17] MEDS ORDERED: LORazepam 2MG/ML-1ML VIAL IV ONE (19:15)
[2020-09-17] MEDS ORDERED: chlordiazePOXIDE HCL 25 MG CAP PO ONE (19:15)
[2020-09-17] MEDS: SODIUM CHLORIDE 0.9% 1,000 ML IV SCH (19:15)
[2020-09-18 05:00] VITALS: BP 117/78
[2020-09-18] MEDS: InsuLIN REG 1unit/0.01ml Soln (100units/ml) SC SCH ×2 (06:27→11:21)
[2020-09-18] MEDS: ACCU-CHEK COMFORT CURVE STRIP VI SCH ×2 (06:27→11:19)
[2020-09-18] MEDS: GABAPENTIN 300 MG CAP PO SCH ×2 (06:27→14:29)
[2020-09-18 06:57] LABS: Basophils # (auto) 0 10 ^3/uL (0-0.2); Basophils % (auto) 1.2 % (0.0-2.0); Eosinophils # (auto) 0.1 10 ^3/uL (0-0.8); Monocytes # (auto) 0.5 10 ^3/uL (0-1.3); Platelet Count (auto) 60 10^3/uL (140-450); Red Cell Distribution Width 14.9 % (11.8-14.3)
[2020-09-18 07:00] LABS: Eosinophils % (auto) 4.1 % (0.0-7.0); Hematocrit 35.3 % (36.0-46.0); Lymphocytes % (auto) 28.4 % (10.0-50.0); Mean Corpuscular Hemoglobin 33.7 pg (28.0-32.0); Mean Corpuscular Hgb Conc. 33.9 g/dL (32.0-36.0); Mean Corpuscular Volume 99.3 fL (80.0-100.0); Monocytes % (auto) 15.1 % (0.0-12.0); Neutrophils # (auto) 1.8 10 ^3/uL (1.6-8.6); Neutrophils % (auto) 51.2 % (37.0-80.0); Red Blood Cells 3.56 10^6/uL (4.0-5.20); White Blood Cell 3.6 10^3/uL (4.4-10.8)
[2020-09-18 07:22] LABS: Potassium 3.7 mmol/L (3.5-5.1)
[2020-09-18 07:30] LABS: Albumin 1.6 g/dL (3.4-5.0); BUN/Creatinine Ratio 19.2; Bilirubin, Total 5.3 mg/dL (0.2-1.0); Calcium 7.7 mg/dL (8.5-10.1); Total Protein 6.9 g/dL (6.4-8.2)
[2020-09-18 09:00] VITALS: BP 121/78
[2020-09-18] MEDS: FOLIC ACID 1 MG TAB PO SCH (09:37)
[2020-09-18] MEDS: THIAMINE HCL 100 MG TAB PO SCH (09:38)
[2020-09-18] MEDS: SODIUM CHLORIDE 0.9% 1,000 ML IV SCH (09:44)
--- NOTE | 2020-09-18 10:45 | NUR ---
MD AT BEDSIDE DR. Michelle PATE WAS IN TO SEE PATIENT. MD WILL DISCHARGE PATIENT HOME TODAY AND PATIENT IS AWARE. NO ORDERS MADE AT THIS TIME.
--- NOTE | 2020-09-18 11:30 | NUR ---
MD AT BEDSIDE DR. Angie MORENO WAS IN TO SEE PATIENT. MD LEFT NO NEW ORDERS.
[2020-09-18] MEDS ORDERED: POTA10TA32 PO (12:58)
[2020-09-18] MEDS ORDERED: INSU1INJ19 SC (12:58)
[2020-09-18] MEDS ORDERED: FOLI1TAB6 PO (12:58)
[2020-09-18] MEDS ORDERED: FURO20TA3 PO (12:58)
[2020-09-18] MEDS ORDERED: INSU100I4 SC (12:58)
[2020-09-18] MEDS ORDERED: LISI-275 PO (12:58)
[2020-09-18] MEDS ORDERED: SPIR50TA5 PO (12:58)
[2020-09-18] MEDS ORDERED: THIA50CA PO (12:58)
[2020-09-18 13:00] VITALS: BP 108/74
--- NOTE | 2020-09-18 15:45 | NUR ---
Discharge instructions given as ordered. Encourage to follow up with PMD as instructed. All questions and concerns addressed. Patient verbalized understanding. Medication reconciliation form completed and copy given to patient. H IV removed with catheter intact, pressure dressing applied. Patient taken to vehicle via wheelchair with all personal belongings, accompanied by staff and family member. No distress noted at time of departure.
== END 2020-09-18 15:45 | disposition home or self-care (01) | DRG 280 ==
LOC: ER 17:44 → EDBD 17:44 → OVERFLOW 17:45 → WEST WING 09-17 14:15
PROVIDERS: ADMIT Hospitalist; ATTEND Hospitalist
PROC: 0W9G30Z Drainage of Peritoneal Cavity with Drainage Device, Percutaneous Approach (ICD-10-PCS; principal; 2020-09-17)
DX: K70.31 Alcoholic cirrhosis of liver with ascites (principal); F10.10 Alcohol abuse, uncomplicated; E11.9 Type 2 diabetes mellitus without complications; I10 Essential (primary) hypertension; K57.30 Diverticulosis of large intestine without perforation or abscess without bleeding; Z80.9 Family history of malignant neoplasm, unspecified; Z88.0 Allergy status to penicillin; Z88.2 Allergy status to sulfonamides; Z20.828 Contact with and (suspected) exposure to other viral communicable diseases
CPT/HCPCS: 10022; 36415; 74177; 76705; 76942; 80053; 82962; 83605; 83690; 85025; 85610; 85730; 87040; 87426; 96365; 96367; 96372; 96375; G0378; J0696; J1815; J2405

== ENCOUNTER → 2020-09-22 | Outpatient (CLI) | payer MEDICAID ==
[~2020-09-22] MED LIST changes: -CYA100I PO
[2020-09-22 12:31] LABS: Basophils # (auto) 0.1 10 ^3/uL (0-0.2); Eosinophils # (auto) 0.1 10 ^3/uL (0-0.8); Mean Corpuscular Hemoglobin 34.6 pg (28.0-32.0); Monocytes # (auto) 0.6 10 ^3/uL (0-1.3); Monocytes % (auto) 15.9 % (0.0-12.0); Neutrophils # (auto) 2.3 10 ^3/uL (1.6-8.6); Neutrophils % (auto) 56.4 % (37.0-80.0); Platelet Count (auto) 74 10^3/uL (140-450)
[2020-09-22 12:33] LABS: Basophils % (auto) 1.2 % (0.0-2.0); Eosinophils % (auto) 2.4 % (0.0-7.0); Hematocrit 39.3 % (36.0-46.0); Hemoglobin 13.5 g/dL (12.2-16.2); Lymphocytes % (auto) 24.1 % (10.0-50.0); Mean Corpuscular Hgb Conc. 34.4 g/dL (32.0-36.0); Mean Corpuscular Volume 100.3 fL (80.0-100.0); Red Blood Cells 3.92 10^6/uL (4.0-5.20); Red Cell Distribution Width 15.1 % (11.8-14.3); White Blood Cell 4.1 10^3/uL (4.4-10.8)
[2020-09-22 12:44] LABS: INR 1.29 (0.9-1.15)
[2020-09-22 13:46] LABS: Calcium 8.3 mg/dL (8.5-10.1)
[2020-09-22 13:49] LABS: BUN/Creatinine Ratio 17.7; Bilirubin, Total 4.4 mg/dL (0.2-1.0); Total Protein 8.1 g/dL (6.4-8.2)
== END | disposition home or self-care (01) ==
LOC: LAB 11:48
PROVIDERS: ATTEND Internal Medicine Gastroenterology
DX: K74.60 Unspecified cirrhosis of liver (principal)
CPT/HCPCS: 36415; 80053; 82105; 82140; 85025; 85610; 87902

== ENCOUNTER → 2020-11-24 | Outpatient (CLI) | payer MEDICAID ==
[2020-11-24 10:32] LABS: INR 1.24 (0.9-1.15); Partial Thromboplastin Time 28.2 sec (23.0-31.2)
[2020-11-24 12:00] LABS: Eosinophils # (auto) 0.1 10 ^3/uL (0-0.8); Hematocrit 37.4 % (36.0-46.0); Monocytes # (auto) 0.6 10 ^3/uL (0-1.3); Red Blood Cells 3.78 10^6/uL (4.0-5.20)
[2020-11-24 12:01] LABS: Basophils # (auto) 0 10 ^3/uL (0-0.2); Eosinophils % (auto) 2.8 % (0.0-7.0); Hemoglobin 12.8 g/dL (12.2-16.2); Lymphocytes # (auto) 1.3 10 ^3/uL (0.4-5.4); Lymphocytes % (auto) 27.7 % (10.0-50.0); Mean Corpuscular Hemoglobin 33.9 pg (28.0-32.0); Mean Corpuscular Hgb Conc. 34.3 g/dL (32.0-36.0); Monocytes % (auto) 12.8 % (0.0-12.0); Neutrophils # (auto) 2.6 10 ^3/uL (1.6-8.6); Neutrophils % (auto) 55.7 % (37.0-80.0); Nucleated Red Blood Cells % 0.1 %; Platelet Count (auto) 64 10^3/uL (140-450); Red Cell Distribution Width 16.2 % (11.8-14.3); White Blood Cell 4.6 10^3/uL (4.4-10.8)
== END | disposition home or self-care (01) ==
LOC: XYW 09:35
PROVIDERS: ATTEND Internal Medicine Gastroenterology
DX: R18.8 Other ascites (principal); F32.9 Major depressive disorder, single episode, unspecified; F41.9 Anxiety disorder, unspecified; Z88.0 Allergy status to penicillin; Z88.2 Allergy status to sulfonamides; Z98.890 Other specified postprocedural states; Z79.899 Other long term (current) drug therapy; Z98.51 Tubal ligation status; Z88.8 Allergy status to other drugs, medicaments and biological substances
CPT/HCPCS: 36415; 49083; 76700; 85025; 85610; 85730; C1729; 10022; 76942

== ENCOUNTER 2020-12-13 21:09 | Inpatient (IN) | payer MEDICAID ==
[~2020-12-13] VITALS: Ht 152.4 cm; Wt 71.3 kg
[2020-12-13 22:24] LABS: Basophils # (auto) 0.1 10 ^3/uL (0-0.2); Basophils % (auto) 1.3 % (0.0-2.0); Eosinophils # (auto) 0.2 10 ^3/uL (0-0.8); Eosinophils % (auto) 2.2 % (0.0-7.0); Hematocrit 39.2 % (36.0-46.0); Hemoglobin 13.6 g/dL (12.2-16.2); Lymphocytes # (auto) 1.9 10 ^3/uL (0.4-5.4); Lymphocytes % (auto) 23.7 % (10.0-50.0); Mean Corpuscular Hemoglobin 34.5 pg (28.0-32.0); Mean Corpuscular Hgb Conc. 34.7 g/dL (32.0-36.0); Mean Corpuscular Volume 99.3 fL (80.0-100.0); Monocytes # (auto) 0.7 10 ^3/uL (0-1.3); Monocytes % (auto) 9.4 % (0.0-12.0); Neutrophils % (auto) 63.4 % (37.0-80.0); Nucleated Red Blood Cells % 0.1 %; Red Blood Cells 3.95 10^6/uL (4.0-5.20); Red Cell Distribution Width 14.5 % (11.8-14.3); White Blood Cell 7.8 10^3/uL (4.4-10.8)
[2020-12-13 22:38] LABS: Albumin 2.2 g/dL (3.4-5.0); Anion Gap 9 (5-15); Blood Urea Nitrogen 12 mg/dL (7-18); Calcium 8.4 mg/dL (8.5-10.1); Carbon Dioxide 22 mmol/L (21-32); Chloride 100 mmol/L (98-107); Glucose 261 mg/dL (74-106); Lipase 221 U/L (73-393); Potassium 4.1 mmol/L (3.5-5.1); Sodium 131 mmol/L (136-145)
[2020-12-13 22:42] LABS: INR 1.18 (0.9-1.15); Partial Thromboplastin Time 28.8 sec (23.0-31.2)
[2020-12-13 22:43] LABS: Lactic Acid w/Reflex 3.2 mmol/L (0.4-2.0)
[2020-12-13 22:46] LABS: Alanine Aminotransferase 110 U/L (13-56); Alkaline Phosphatase 270 U/L (45-117); Aspartate Aminotransferase 205 U/L (15-37); BUN/Creatinine Ratio 16.9; Bilirubin, Total 2.4 mg/dL (0.2-1.0); GFR African American 109 mL/min; GFR Non-African American 90 mL/min; Total Protein 8.6 g/dL (6.4-8.2)
[2020-12-13] MEDS ORDERED: LORazepam 2MG/ML-1ML VIAL IV ONE (23:15)
[2020-12-14] MEDS ORDERED: THIAMINE 100mg/ml INJ (200mg/2ml VIAL) IV ONE (00:30)
[2020-12-14] MEDS ORDERED: metroNIDAZOLE 500MG/100ML 100 ML IV ONE ×2 (00:30→10:00)
[2020-12-14] MEDS ORDERED: CIPROFLOXACIN 400MG/200ML 200 ML IV ONE (00:30)
[2020-12-14] MEDS: SODIUM CHLORIDE 0.9% 1,000 ML IV ONE ×2 (01:00→03:10)
[2020-12-14] MEDS ORDERED: ONDANSETRON HCL 4 MG/2 ML VIAL IV PRN (01:15)
[2020-12-14] MEDS ORDERED: MORPHINE SULFATE INJECTION 2 MG/ML SYRG IM PRN (01:15)
[2020-12-14 05:19] LABS: Urine Bacteria FEW /hpf (None Seen); Urine Blood 3+ /uL (Negative); Urine Hyaline Cast FEW /lpf (0 - 2); Urine Mucus FEW (None Seen); Urine Specific Gravity 1.028 (1.001-1.035); Urine WBC 1 /hpf (0 - 5)
[2020-12-14] MEDS: MORPHINE SULFATE INJECTION 2 MG/ML SYRG IV PRN ×2 (06:00→13:17)
[2020-12-14 06:53] LABS: Basophils # (auto) 0.1 10 ^3/uL (0-0.2); Basophils % (auto) 1.3 % (0.0-2.0); Eosinophils # (auto) 0.1 10 ^3/uL (0-0.8); Eosinophils % (auto) 1.7 % (0.0-7.0); Hematocrit 33.9 % (36.0-46.0); Hemoglobin 11.6 g/dL (12.2-16.2); Lymphocytes # (auto) 1.5 10 ^3/uL (0.4-5.4); Lymphocytes % (auto) 22.3 % (10.0-50.0); Mean Corpuscular Hemoglobin 33.8 pg (28.0-32.0); Mean Corpuscular Hgb Conc. 34.4 g/dL (32.0-36.0); Mean Corpuscular Volume 98.4 fL (80.0-100.0); Monocytes % (auto) 14.4 % (0.0-12.0); Neutrophils % (auto) 60.3 % (37.0-80.0); Nucleated Red Blood Cells % 0.1 %; Red Blood Cells 3.44 10^6/uL (4.0-5.20); Red Cell Distribution Width 14.4 % (11.8-14.3); White Blood Cell 6.7 10^3/uL (4.4-10.8)
[2020-12-14 06:54] LABS: BUN/Creatinine Ratio 16.7; Calcium 7.4 mg/dL (8.5-10.1); Potassium 3.9 mmol/L (3.5-5.1)
[2020-12-14 06:57] LABS: Bilirubin, Total 2.6 mg/dL (0.2-1.0); Total Protein 7.2 g/dL (6.4-8.2)
[2020-12-14] MEDS ORDERED: SODIUM CHLORIDE 0.9% 5,000 ML IV ONE (09:00)
[2020-12-14] MEDS ORDERED: FUROSEMIDE 20 MG TAB PO SCH (10:00)
[2020-12-14] MEDS ORDERED: SPIRONOLACTONE 25 MG TAB PO SCH (10:00)
[2020-12-14] MEDS: levoFLOXacin 500MG 100 ML IV SCH (10:45)
[2020-12-14] MEDS ORDERED: FOLIC ACID 1 MG, MULTIPLE VITAMIN 10 ML, MAGNESIUM SULF SDV 50% 8 MEQ, THIAMINE INJ 100... INJ SCH ×5 (12:00)
[2020-12-14] MEDS ORDERED: FOLI400T34 PO (13:26)
[2020-12-14] MEDS ORDERED: CYAN1TAB11 PO (13:27)
[2020-12-14] MEDS ORDERED: INSU1INJ19 SC ×2 (13:34→13:36)
[2020-12-14] MEDS ORDERED: GABA300C10 PO (13:35)
[2020-12-14] MEDS ORDERED: LORazepam 2MG/ML-1ML VIAL IV PRN (15:30)
[2020-12-14] MEDS: ALBUMIN 25% 100 ML IV SCH ×2 (16:49→23:12)
[2020-12-14 17:00] VITALS: BP 135/84
[2020-12-14] MEDS ORDERED: DEXTROSE (50%) 50ML SYRG IV PRN (17:00)
[2020-12-14] MEDS: InsuLIN REG 1unit/0.01ml Soln (100units/ml) SC SCH ×2 (17:20→21:20)
[2020-12-14] MEDS: ACCU-CHEK COMFORT CURVE STRIP VI SCH ×2 (17:20→21:19)
[2020-12-14] MEDS: chlordiazePOXIDE HCL 5 MG CAP PO SCH ×2 (17:21→23:25)
[2020-12-14 18:19] VITALS: BP 135/84
[2020-12-14] MEDS: GABAPENTIN 300 MG CAP PO SCH (21:19)
[2020-12-14] MEDS: PROPRANOLOL HCL 20 MG TAB PO SCH (21:19)
[2020-12-14 21:47] VITALS: BP 138/70
[2020-12-15 04:42] VITALS: BP 121/74
[2020-12-15] MEDS: chlordiazePOXIDE HCL 5 MG CAP PO SCH ×2 (05:10→11:38)
[2020-12-15] MEDS: GABAPENTIN 300 MG CAP PO SCH (05:11)
[2020-12-15 05:56] LABS: Basophils # (auto) 0 10 ^3/uL (0-0.2); Basophils % (auto) 0.6 % (0.0-2.0); Eosinophils # (auto) 0.2 10 ^3/uL (0-0.8); Lymphocytes # (auto) 1.1 10 ^3/uL (0.4-5.4); Nucleated Red Blood Cells % 0.1 %; White Blood Cell 5.7 10^3/uL (4.4-10.8)
[2020-12-15 05:59] LABS: Eosinophils % (auto) 3.2 % (0.0-7.0); Hematocrit 30.8 % (36.0-46.0); Hemoglobin 10.8 g/dL (12.2-16.2); Lymphocytes % (auto) 19.3 % (10.0-50.0); Mean Corpuscular Hemoglobin 34.9 pg (28.0-32.0); Mean Corpuscular Hgb Conc. 35.2 g/dL (32.0-36.0); Mean Corpuscular Volume 99.3 fL (80.0-100.0); Monocytes # (auto) 0.6 10 ^3/uL (0-1.3); Monocytes % (auto) 9.6 % (0.0-12.0); Neutrophils # (auto) 3.8 10 ^3/uL (1.6-8.6); Neutrophils % (auto) 67.3 % (37.0-80.0); Red Blood Cells 3.11 10^6/uL (4.0-5.20); Red Cell Distribution Width 14.6 % (11.8-14.3)
[2020-12-15 06:10] LABS: Potassium 3.8 mmol/L (3.5-5.1)
[2020-12-15] MEDS: ACCU-CHEK COMFORT CURVE STRIP VI SCH ×2 (06:10→12:12)
[2020-12-15] MEDS: InsuLIN REG 1unit/0.01ml Soln (100units/ml) SC SCH ×2 (06:11→12:14)
[2020-12-15 06:18] LABS: Albumin 2.6 g/dL (3.4-5.0); BUN/Creatinine Ratio 21.3; Bilirubin, Total 5.3 mg/dL (0.2-1.0); Calcium 8.3 mg/dL (8.5-10.1); Total Protein 7.2 g/dL (6.4-8.2)
[2020-12-15] MEDS: ALBUMIN 25% 100 ML IV SCH (06:43)
[2020-12-15 08:00] VITALS: BP 112/79
[2020-12-15] MEDS ORDERED: SPIRONOLACTONE 25 MG TAB PO SCH (10:00)
[2020-12-15] MEDS: levoFLOXacin 500MG 100 ML IV SCH (10:03)
[2020-12-15] MEDS: PROPRANOLOL HCL 20 MG TAB PO SCH (10:04)
[2020-12-15] MEDS ORDERED: PROP20TA73 PO (11:43)
[2020-12-15] MEDS ORDERED: SPIR50TA5 PO (11:43)
[2020-12-15] MEDS ORDERED: CHL10C PO (11:43)
[2020-12-15 12:00] VITALS: BP 101/68
[2020-12-15 14:09] VITALS: BP 127/78
== END 2020-12-15 15:00 | disposition home or self-care (01) | DRG 280 ==
LOC: EDBD 21:09 → ER 21:13 → TELE 12-14 01:11 → TELE-WESTW 12-14 15:25
PROVIDERS: ADMIT Hospitalist; ATTEND Hospitalist
PROC: 0W9G3ZZ Drainage of Peritoneal Cavity, Percutaneous Approach (ICD-10-PCS; principal; 2020-12-14)
DX: K70.31 Alcoholic cirrhosis of liver with ascites (principal); K52.9 Noninfective gastroenteritis and colitis, unspecified; F10.129 Alcohol abuse with intoxication, unspecified; Z20.822 Contact with and (suspected) exposure to COVID-19; E11.9 Type 2 diabetes mellitus without complications; I10 Essential (primary) hypertension; E66.9 Obesity, unspecified; K76.6 Portal hypertension; Y90.9 Presence of alcohol in blood, level not specified; Z88.0 Allergy status to penicillin; Z88.2 Allergy status to sulfonamides; Z83.3 Family history of diabetes mellitus; Z80.8 Family history of malignant neoplasm of other organs or systems; Z82.49 Family history of ischemic heart disease and other diseases of the circulatory system; Z80.1 Family history of malignant neoplasm of trachea, bronchus and lung; Z98.51 Tubal ligation status; Z79.899 Other long term (current) drug therapy; Z68.26 Body mass index [BMI] 26.0-26.9, adult
CPT/HCPCS: 10022; 36415; 49083; 71250; 74176; 76700; 76942; 80053; 80320; 81001; 82140; 82150; 82962; 83605; 83690; 83880; 84484; 85025; 85610; 85730; 87040; 87086; 87426; 93005; 96365; 96368; 96375; G0378; J1815; J1956; J2405; J3490; P9047

== ENCOUNTER 2021-01-11 14:01 | Emergency (ER) | payer MEDICAID ==
[~2021-01-11] VITALS: Ht 157.5 cm; Wt 65.8 kg
[~2021-01-11 14:01] MED LIST changes: +CHL10C PO; +CYAN1TAB11 PO; -FOLI1TAB6 PO; +FOLI400T34 PO; -FURO20TA3 PO; +GABA300C10 PO; -LISI-275 PO; -POTA10TA32 PO; +PROP20TA73 PO; -SUM25T PO; -THIA50CA PO
[2021-01-11] MEDS ORDERED: ACETAMINOPHEN 325 MG TAB PO ONE (15:00)
[2021-01-11 15:11] VITALS: BP 121/71
== END 2021-01-11 15:46 | disposition home or self-care (01) ==
LOC: ER 14:01
DX: S20.211A Contusion of right front wall of thorax, initial encounter (principal); E11.9 Type 2 diabetes mellitus without complications; I10 Essential (primary) hypertension; Z79.899 Other long term (current) drug therapy; Z88.0 Allergy status to penicillin; Z88.2 Allergy status to sulfonamides; X58.XXXA Exposure to other specified factors, initial encounter; Y93.89 Activity, other specified; Y92.89 Other specified places as the place of occurrence of the external cause; Y99.8 Other external cause status
CPT/HCPCS: 71101

== ENCOUNTER 2021-01-13 15:19 | Emergency (ER) | payer MEDICAID ==
[~2021-01-13] VITALS: Ht 162.6 cm; Wt 72.6 kg
[2021-01-13 15:58] LABS: Basophils # (auto) 0.1 10 ^3/uL (0-0.2); Basophils % (auto) 1.4 % (0.0-2.0); Hemoglobin 12.8 g/dL (12.2-16.2); Monocytes # (auto) 0.5 10 ^3/uL (0-1.3); Neutrophils # (auto) 3.3 10 ^3/uL (1.6-8.6); Nucleated Red Blood Cells % 0.1 %; Red Blood Cells 3.83 10^6/uL (4.0-5.20); White Blood Cell 5.4 10^3/uL (4.4-10.8)
[2021-01-13 16:00] LABS: Eosinophils # (auto) 0.1 10 ^3/uL (0-0.8); Eosinophils % (auto) 2.7 % (0.0-7.0); Hematocrit 37.1 % (36.0-46.0); Lymphocytes # (auto) 1.5 10 ^3/uL (0.4-5.4); Mean Corpuscular Hemoglobin 33.4 pg (28.0-32.0); Mean Corpuscular Hgb Conc. 34.4 g/dL (32.0-36.0); Monocytes % (auto) 8.8 % (0.0-12.0); Neutrophils % (auto) 60.1 % (37.0-80.0)
[2021-01-13 16:24] LABS: Potassium 3.8 mmol/L (3.5-5.1)
[2021-01-13 16:29] LABS: Albumin 2.5 g/dL (3.4-5.0); BUN/Creatinine Ratio 10.6; Magnesium 1.9 mg/dL (1.6-2.6)
[2021-01-13 17:18] LABS: Bilirubin, Total 2.7 mg/dL (0.2-1.0)
[2021-01-13 18:16] VITALS: BP 131/87
== END 2021-01-13 18:22 | disposition home or self-care (01) ==
LOC: ER 15:19
DX: K70.10 Alcoholic hepatitis without ascites (principal); M79.604 Pain in right leg; M79.605 Pain in left leg; E11.9 Type 2 diabetes mellitus without complications; I10 Essential (primary) hypertension; Z98.51 Tubal ligation status; Z88.0 Allergy status to penicillin; Z88.2 Allergy status to sulfonamides
CPT/HCPCS: 36415; 80053; 82140; 83735; 85025; 93970

== ENCOUNTER → 2021-05-26 | Outpatient (CLI) | payer MEDICAID ==
[~2021-05-26] MED LIST changes: -CHL10C PO; -PROP20TA73 PO
[2021-05-26 08:51] LABS: Basophils # (auto) 0.1 10 ^3/uL (0-0.2); Basophils % (auto) 0.9 % (0.0-2.0); Eosinophils # (auto) 0.3 10 ^3/uL (0-0.8); Eosinophils % (auto) 4.5 % (0.0-7.0); Hematocrit 36.5 % (36.0-46.0); Hemoglobin 12.4 g/dL (12.2-16.2); Lymphocytes # (auto) 1.8 10 ^3/uL (0.4-5.4); Lymphocytes % (auto) 28.8 % (10.0-50.0); Mean Corpuscular Hemoglobin 31.3 pg (28.0-32.0); Mean Corpuscular Volume 92.1 fL (80.0-100.0); Monocytes # (auto) 0.8 10 ^3/uL (0-1.3); Monocytes % (auto) 12.4 % (0.0-12.0); Neutrophils # (auto) 3.4 10 ^3/uL (1.6-8.6); Neutrophils % (auto) 53.4 % (37.0-80.0); Red Blood Cells 3.96 10^6/uL (4.0-5.20); Red Cell Distribution Width 14.8 % (11.8-14.3); White Blood Cell 6.3 10^3/uL (4.4-10.8)
[2021-05-26 09:22] LABS: Albumin 2.3 g/dL (3.4-5.0); BUN/Creatinine Ratio 16.3; Bilirubin, Total 1.7 mg/dL (0.2-1.0); Calcium 8.7 mg/dL (8.5-10.1)
== END | disposition home or self-care (01) ==
LOC: LAB 08:26
PROVIDERS: ATTEND Nurse Practitioner
DX: E11.65 Type 2 diabetes mellitus with hyperglycemia (principal); E78.5 Hyperlipidemia, unspecified
CPT/HCPCS: 36415; 80053; 80061; 83036; 85025

== ENCOUNTER 2022-02-28 06:32 | Emergency (ER) | payer MEDICAID ==
[~2022-02-28] VITALS: Ht 157.5 cm; Wt 72.6 kg
[2022-02-28 08:27] LABS: Eosinophils # (auto) 0.1 10 ^3/uL (0-0.8); Lymphocytes # (auto) 0.8 10 ^3/uL (0.4-5.4); Monocytes # (auto) 0.9 10 ^3/uL (0-1.3); Monocytes % (auto) 16.2 % (0.0-12.0); Nucleated Red Blood Cells % 0.2 %
[2022-02-28 08:29] LABS: Basophils # (auto) 0 10 ^3/uL (0-0.2); Basophils % (auto) 0.7 % (0.0-2.0); Eosinophils % (auto) 2.5 % (0.0-7.0); Hematocrit 39.2 % (36.0-46.0); Hemoglobin 13.7 g/dL (12.2-16.2); Lymphocytes % (auto) 14.8 % (10.0-50.0); Mean Corpuscular Hemoglobin 33.2 pg (28.0-32.0); Mean Corpuscular Volume 94.7 fL (80.0-100.0); Neutrophils # (auto) 3.6 10 ^3/uL (1.6-8.6); Neutrophils % (auto) 65.8 % (37.0-80.0); Red Blood Cells 4.14 10^6/uL (4.0-5.20); Red Cell Distribution Width 15.7 % (11.8-14.3); White Blood Cell 5.4 10^3/uL (4.4-10.8)
[2022-02-28 08:35] LABS: Urine Bacteria FEW /hpf (None Seen); Urine Blood 2+ /uL (Negative); Urine Specific Gravity 1.005 (1.001-1.035); Urine WBC 3 /hpf (0 - 5)
[2022-02-28 09:05] LABS: Albumin 2.8 g/dL (3.4-5.0); Potassium 3.6 mmol/L (3.5-5.1)
[2022-02-28 09:12] LABS: Bilirubin, Total 5.8 mg/dL (0.2-1.0); Calcium 8.7 mg/dL (8.5-10.1); Total Protein 7.6 g/dL (6.4-8.2)
[2022-02-28 11:04] LABS: INR 1.37 (0.9-1.15); Partial Thromboplastin Time 27.2 sec (23.6-33.0)
[2022-02-28 14:05] VITALS: BP 125/79
== END 2022-02-28 14:07 | disposition home or self-care (01) ==
LOC: ER 06:32
DX: K70.31 Alcoholic cirrhosis of liver with ascites (principal); I24.9 Acute ischemic heart disease, unspecified; R74.01 Elevation of levels of liver transaminase levels; I10 Essential (primary) hypertension; E11.9 Type 2 diabetes mellitus without complications; Z79.4 Long term (current) use of insulin; Z79.899 Other long term (current) drug therapy; Z88.0 Allergy status to penicillin; Z88.2 Allergy status to sulfonamides; Z88.8 Allergy status to other drugs, medicaments and biological substances
CPT/HCPCS: 36415; 71045; 76705; 80053; 81001; 83880; 84443; 84484; 85025; 85610; 85730; 93005

== ENCOUNTER 2022-07-09 11:57 | Inpatient (IN) | payer MEDICAID ==
[~2022-07-09] VITALS: Ht 157.5 cm; Wt 80.0 kg
[2022-07-09 12:49] LABS: Basophils # (auto) 0 10 ^3/uL (0-0.2); Eosinophils # (auto) 0.1 10 ^3/uL (0-0.8); Hemoglobin 14.4 g/dL (12.2-16.2); Monocytes # (auto) 0.8 10 ^3/uL (0-1.3); Neutrophils # (auto) 4.5 10 ^3/uL (1.6-8.6); White Blood Cell 5.7 10^3/uL (4.4-10.8)
[2022-07-09 12:50] LABS: Basophils % (auto) 0.3 % (0.0-2.0); Eosinophils % (auto) 0.9 % (0.0-7.0); Hematocrit 42.2 % (36.0-46.0); Lymphocytes # (auto) 0.4 10 ^3/uL (0.4-5.4); Lymphocytes % (auto) 6.8 % (10.0-50.0); Mean Corpuscular Hemoglobin 32.8 pg (28.0-32.0); Mean Corpuscular Hgb Conc. 34.2 g/dL (32.0-36.0); Mean Corpuscular Volume 95.9 fL (80.0-100.0); Monocytes % (auto) 13.4 % (0.0-12.0); Neutrophils % (auto) 78.6 % (37.0-80.0); Nucleated Red Blood Cells % 0.1 %; Red Cell Distribution Width 16.7 % (11.8-14.3)
[2022-07-09 13:10] LABS: INR 1.61 (0.9-1.15); Partial Thromboplastin Time 32.4 sec (24.6-33.4)
[2022-07-09 13:20] LABS: BUN/Creatinine Ratio 14.9; Bilirubin, Total 31.5 mg/dL (0.2-1.0); Calcium 8.4 mg/dL (8.5-10.1)
[2022-07-09 13:21] LABS: Total Protein 7.1 g/dL (6.4-8.2)
[2022-07-09 13:25] LABS: Potassium 2.7 mmol/L (3.5-5.1)
[2022-07-09] MEDS ORDERED: FUROSEMIDE 40 MG/4 ML VIAL IV ONE (16:15)
[2022-07-09] MEDS ORDERED: SPIRONOLACTONE 25 MG TAB PO ONE (16:15)
[2022-07-09] MEDS ORDERED: LACTULOSE 20Gm/30ML SOLN PO ONE (16:15)
[2022-07-09] MEDS ORDERED: SODIUM CHLORIDE 0.9% 1,000 ML IV ONE (16:15)
[2022-07-09] MEDS ORDERED: ALBUMIN 25% 100 ML IV ONE (17:15)
[2022-07-09] MEDS ORDERED: POTASSIUM EFFERVESENT TAB 25 MEQ PO ONE ×3 (17:15→22:15)
[2022-07-09 17:34] LABS: Urine Bacteria NONE SEEN /hpf (None Seen); Urine Blood 2+ /uL (Negative); Urine Specific Gravity 1.007 (1.001-1.035); Urine WBC 1 /hpf (0 - 5)
[2022-07-09] MEDS ORDERED: DOCUSATE SOD 100 MG CAP PO PRN (19:15)
[2022-07-09] MEDS ORDERED: HYDROcodone-ACET 5/325MG TAB PO PRN (19:15)
[2022-07-09] MEDS ORDERED: NITROGLYCERIN 0.4 MG SL TAB SL PRN (19:15)
[2022-07-09] MEDS ORDERED: MORPHINE SULFATE INJ 2 MG/ml SYRG IV PRN (19:15)
[2022-07-09] MEDS ORDERED: DEXTROSE (50%) 50ML SYRG IV PRN (19:15)
[2022-07-09 22:05] LABS: BUN/Creatinine Ratio 16.8; Calcium 7.8 mg/dL (8.5-10.1)
[2022-07-09 22:10] LABS: Potassium 2.6 mmol/L (3.5-5.1)
[2022-07-09] MEDS: InsuLIN REG 1unit/0.01ml Soln (100units/ml) SC SCH (22:31)
[2022-07-09] MEDS: ACCU-CHEK COMFORT CURVE STRIP VI SCH (22:31)
[2022-07-10] MEDS ORDERED: POTASSIUM EFFERVESENT TAB 25 MEQ PO ONE (01:00)
[2022-07-10 05:37] LABS: Hemoglobin 12.5 g/dL (12.2-16.2)
[2022-07-10 05:39] LABS: Hematocrit 35.4 % (36.0-46.0); Mean Corpuscular Hemoglobin 33.8 pg (28.0-32.0); Mean Corpuscular Hgb Conc. 35.3 g/dL (32.0-36.0); Mean Corpuscular Volume 95.8 fL (80.0-100.0); Red Cell Distribution Width 17.4 % (11.8-14.3); White Blood Cell 3.8 10^3/uL (4.4-10.8)
[2022-07-10 05:44] LABS: Basophils % (manual) 0 (0.0-2.0); Blast Cells 0; Metamyelocytes % 0; Promyelocytes % 0; Reactive Lymphocytes 0
[2022-07-10 05:51] LABS: Potassium 3.9 mmol/L (3.5-5.1)
[2022-07-10 05:55] LABS: Albumin 2.1 g/dL (3.4-5.0); BUN/Creatinine Ratio 14.6; Calcium 7.9 mg/dL (8.5-10.1)
[2022-07-10 06:08] LABS: Bilirubin, Total 26.9 mg/dL (0.2-1.0)
[2022-07-10 06:18] LABS: Total Protein 5.6 g/dL (6.4-8.2)
[2022-07-10 06:55] LABS: Band Neutrophils % (manual) 2; Eosinophils % (manual) 2 (0-7); Myelocytes % 1
[2022-07-10 06:56] LABS: Lymphocytes % (manual) 10 (10.0-50.0); Monocytes % (manual) 17 (0-12)
[2022-07-10] MEDS: ACCU-CHEK COMFORT CURVE STRIP VI SCH ×4 (07:32→22:08)
[2022-07-10] MEDS: InsuLIN REG 1unit/0.01ml Soln (100units/ml) SC SCH ×4 (07:40→22:11)
[2022-07-10] MEDS: ALBUMIN 25% 100 ML IV SCH ×2 (08:58→17:50)
[2022-07-10] MEDS: MIDODRINE HCL 10 MG TAB PO SCH ×2 (12:07→17:50)
[2022-07-10] MEDS: OCTREOTIDE ACETATE 100 MCG/ML VL SUBCUT SCH ×2 (15:00→22:09)
[2022-07-10 20:00] VITALS: BP 135/59
[2022-07-11] MEDS: ALBUMIN 25% 100 ML IV SCH (00:02)
[2022-07-11 05:00] VITALS: BP_SYST 109; BP_SYST 132; BP_DIAS 50; BP_DIAS 54
[2022-07-11 05:37] LABS: Potassium 3.2 mmol/L (3.5-5.1)
[2022-07-11] MEDS: MIDODRINE HCL 10 MG TAB PO SCH ×3 (05:38→17:50)
[2022-07-11] MEDS: OCTREOTIDE ACETATE 100 MCG/ML VL SUBCUT SCH ×3 (05:39→21:50)
[2022-07-11 05:45] LABS: Albumin 2.7 g/dL (3.4-5.0); BUN/Creatinine Ratio 15.4; Calcium 8.1 mg/dL (8.5-10.1)
[2022-07-11 06:13] LABS: Bilirubin, Total 25.9 mg/dL (0.2-1.0); Total Protein 5.6 g/dL (6.4-8.2)
[2022-07-11] MEDS: ACCU-CHEK COMFORT CURVE STRIP VI SCH ×4 (06:42→21:51)
[2022-07-11] MEDS: InsuLIN REG 1unit/0.01ml Soln (100units/ml) SC SCH ×4 (06:45→22:10)
[2022-07-11 09:00] VITALS: BP 108/48
[2022-07-11] MEDS: PANTOPRAZOLE 40 MG TAB PO SCH (09:19)
[2022-07-11] MEDS: FOLIC ACID 1 MG TAB PO SCH (09:19)
[2022-07-11] MEDS: THIAMINE HCL 100 MG TAB PO SCH (09:20)
[2022-07-11 09:52] LABS: Hematocrit 34.7 % (36.0-46.0); Hemoglobin 11.9 g/dL (12.2-16.2); Mean Corpuscular Hemoglobin 33.1 pg (28.0-32.0); Mean Corpuscular Hgb Conc. 34.3 g/dL (32.0-36.0); Mean Corpuscular Volume 96.7 fL (80.0-100.0); Red Blood Cells 3.59 10^6/uL (4.0-5.20); Red Cell Distribution Width 17.1 % (11.8-14.3); White Blood Cell 4.2 10^3/uL (4.4-10.8)
[2022-07-11 09:55] LABS: Band Neutrophils % (manual) 0; Basophils % (manual) 0 (0.0-2.0); Blast Cells 0; Metamyelocytes % 0; Myelocytes % 0; Promyelocytes % 0; Reactive Lymphocytes 0
[2022-07-11 11:22] LABS: Eosinophils % (manual) 1 (0-7); Lymphocytes % (manual) 14 (10.0-50.0); Monocytes % (manual) 16 (0-12)
[2022-07-11 13:00] VITALS: BP 108/63
[2022-07-11 13:11] LABS: INR 1.85 (0.9-1.15); Partial Thromboplastin Time 40.4 sec (24.6-33.4)
[2022-07-11] MEDS: methylPREDNISolone SOD SUCC 40 MG/ML VL IV SCH ×2 (14:19→21:51)
[2022-07-11 17:00] VITALS: BP 122/56
[2022-07-11] MEDS ORDERED: phytonadione 10 MG in SODIUM CHL 0.9% 50 ML IV ONE ×2 (18:00→20:00)
[2022-07-11 22:00] VITALS: BP 117/47
[2022-07-12 05:00] VITALS: BP 120/69
[2022-07-12] MEDS: methylPREDNISolone SOD SUCC 40 MG/ML VL IV SCH ×2 (05:21→21:54)
[2022-07-12] MEDS: OCTREOTIDE ACETATE 100 MCG/ML VL SUBCUT SCH ×3 (05:21→21:54)
[2022-07-12] MEDS: MIDODRINE HCL 10 MG TAB PO SCH ×3 (05:21→18:04)
[2022-07-12 06:17] LABS: Albumin 2.3 g/dL (3.4-5.0); Calcium 8.4 mg/dL (8.5-10.1); Potassium 4.1 mmol/L (3.5-5.1)
[2022-07-12 06:20] LABS: BUN/Creatinine Ratio 20.1
[2022-07-12] MEDS: ACCU-CHEK COMFORT CURVE STRIP VI SCH ×4 (06:23→21:54)
[2022-07-12] MEDS: InsuLIN REG 1unit/0.01ml Soln (100units/ml) SC SCH ×4 (06:27→22:04)
[2022-07-12 06:36] LABS: Bilirubin, Total 28.6 mg/dL (0.2-1.0)
[2022-07-12 06:46] LABS: Total Protein 5.7 g/dL (6.4-8.2)
[2022-07-12 09:00] VITALS: BP 119/61
[2022-07-12] MEDS: FOLIC ACID 1 MG TAB PO SCH (09:44)
[2022-07-12] MEDS: PANTOPRAZOLE 40 MG TAB PO SCH (09:44)
[2022-07-12] MEDS: THIAMINE HCL 100 MG TAB PO SCH (09:44)
[2022-07-12 13:00] VITALS: BP 157/85
[2022-07-12 16:42] VITALS: BP 127/62
[2022-07-12 20:00] VITALS: BP 117/62
[2022-07-12 21:41] VITALS: BP 117/62
[2022-07-12] MEDS: URSODIOL 300 MG CAP PO SCH (21:55)
[2022-07-13 05:00] VITALS: BP 111/60
[2022-07-13] MEDS: MIDODRINE HCL 10 MG TAB PO SCH ×3 (06:07→17:56)
[2022-07-13] MEDS: ACCU-CHEK COMFORT CURVE STRIP VI SCH ×4 (06:07→22:46)
[2022-07-13] MEDS: OCTREOTIDE ACETATE 100 MCG/ML VL SUBCUT SCH ×3 (06:07→22:45)
[2022-07-13] MEDS: InsuLIN REG 1unit/0.01ml Soln (100units/ml) SC SCH ×4 (06:10→23:11)
[2022-07-13 07:42] LABS: Potassium 3.9 mmol/L (3.5-5.1)
[2022-07-13 07:54] LABS: BUN/Creatinine Ratio 22.3; Calcium 8.8 mg/dL (8.5-10.1)
[2022-07-13 09:07] VITALS: BP 119/61
[2022-07-13] MEDS: methylPREDNISolone SOD SUCC 40 MG/ML VL IV SCH ×2 (09:49→22:40)
[2022-07-13] MEDS: FOLIC ACID 1 MG TAB PO SCH (09:50)
[2022-07-13] MEDS: PANTOPRAZOLE 40 MG TAB PO SCH (09:50)
[2022-07-13] MEDS: URSODIOL 300 MG CAP PO SCH ×2 (09:50→22:00)
[2022-07-13] MEDS: THIAMINE HCL 100 MG TAB PO SCH (09:50)
[2022-07-13] MEDS: FOLIC ACID 1 MG, MULTIPLE VITAMIN 10 ML, MAGNESIUM SULF SDV 50% 8 MEQ, THIAMINE INJ 100... INJ SCH ×5 (12:46)
[2022-07-13 13:00] VITALS: BP 134/75
[2022-07-13 16:45] VITALS: BP 117/57
[2022-07-13 20:00] VITALS: BP 101/65
[2022-07-13 22:00] VITALS: BP 101/65
[2022-07-13] MEDS ORDERED: LORazepam 2MG/ML-1ML VIAL IV PRN (23:00)
[2022-07-14 04:33] VITALS: BP 131/70
[2022-07-14 05:26] LABS: Red Blood Cells 4.18 10^6/uL (4.0-5.20)
[2022-07-14 05:29] LABS: Hematocrit 41.2 % (36.0-46.0); Hemoglobin 13.8 g/dL (12.2-16.2); Mean Corpuscular Hemoglobin 33.1 pg (28.0-32.0); Mean Corpuscular Hgb Conc. 33.6 g/dL (32.0-36.0); Mean Corpuscular Volume 98.5 fL (80.0-100.0); Red Cell Distribution Width 16.9 % (11.8-14.3); White Blood Cell 9.4 10^3/uL (4.4-10.8)
[2022-07-14 05:43] LABS: Basophils % (manual) 0 (0.0-2.0); Blast Cells 0; Eosinophils % (manual) 0 (0-7); Metamyelocytes % 0; Myelocytes % 0; Promyelocytes % 0; Reactive Lymphocytes 0
[2022-07-14] MEDS: MIDODRINE HCL 10 MG TAB PO SCH ×3 (06:00→18:07)
[2022-07-14 06:01] LABS: Albumin 2.4 g/dL (3.4-5.0); Bilirubin, Total 32.4 mg/dL (0.2-1.0); Calcium 8.6 mg/dL (8.5-10.1); Magnesium 2.7 mg/dL (1.6-2.6); Phosphorus 2.8 mg/dL (2.5-4.90)
[2022-07-14] MEDS: OCTREOTIDE ACETATE 100 MCG/ML VL SUBCUT SCH ×3 (06:12→23:00)
[2022-07-14] MEDS: ACCU-CHEK COMFORT CURVE STRIP VI SCH ×4 (06:32→23:00)
[2022-07-14] MEDS: InsuLIN REG 1unit/0.01ml Soln (100units/ml) SC SCH ×4 (06:33→23:22)
[2022-07-14 06:42] LABS: Total Protein 5.7 g/dL (6.4-8.2)
[2022-07-14 07:36] LABS: Band Neutrophils % (manual) 3; Lymphocytes % (manual) 8 (10.0-50.0); Monocytes % (manual) 10 (0-12)
[2022-07-14 09:00] VITALS: BP 133/85
[2022-07-14] MEDS: PANTOPRAZOLE 40 MG TAB PO SCH (11:45)
[2022-07-14] MEDS: URSODIOL 300 MG CAP PO SCH ×2 (11:46→22:59)
[2022-07-14] MEDS: methylPREDNISolone SOD SUCC 40 MG/ML VL IV SCH (11:46)
[2022-07-14] MEDS: FOLIC ACID 1 MG, MULTIPLE VITAMIN 10 ML, MAGNESIUM SULF SDV 50% 8 MEQ, THIAMINE INJ 100... INJ SCH ×5 (12:20)
[2022-07-14 13:00] VITALS: BP 129/72
[2022-07-14] MEDS ORDERED: LACTULOSE 20Gm/30ML SOLN PO PRN (13:45)
[2022-07-14 17:00] VITALS: BP 137/73
[2022-07-14] MEDS ORDERED: phytonadione 10 MG in SODIUM CHL 0.9% 50 ML IV ONE (20:45)
[2022-07-15] MEDS: MIDODRINE HCL 10 MG TAB PO SCH ×3 (06:00→18:00)
[2022-07-15 06:08] LABS: Hematocrit 37.4 % (36.0-46.0); Hemoglobin 12.7 g/dL (12.2-16.2); Mean Corpuscular Hemoglobin 33.3 pg (28.0-32.0); Mean Corpuscular Hgb Conc. 34.1 g/dL (32.0-36.0); Mean Corpuscular Volume 97.8 fL (80.0-100.0); Red Blood Cells 3.83 10^6/uL (4.0-5.20); Red Cell Distribution Width 16.8 % (11.8-14.3); White Blood Cell 11.3 10^3/uL (4.4-10.8)
[2022-07-15 06:21] LABS: Basophils % (manual) 0 (0.0-2.0); Blast Cells 0; Eosinophils % (manual) 0 (0-7); Metamyelocytes % 0; Myelocytes % 0; Promyelocytes % 0; Reactive Lymphocytes 0
[2022-07-15 06:27] VITALS: BP 130/79
[2022-07-15] MEDS: ACCU-CHEK COMFORT CURVE STRIP VI SCH ×4 (06:36→21:41)
[2022-07-15] MEDS: OCTREOTIDE ACETATE 100 MCG/ML VL SUBCUT SCH ×3 (06:49→21:47)
[2022-07-15] MEDS: InsuLIN REG 1unit/0.01ml Soln (100units/ml) SC SCH ×4 (06:50→21:47)
[2022-07-15 07:10] LABS: Albumin 2.2 g/dL (3.4-5.0); BUN/Creatinine Ratio 23.6; Bilirubin, Total 32.8 mg/dL (0.2-1.0); Calcium 8.3 mg/dL (8.5-10.1); Magnesium 2.7 mg/dL (1.6-2.6); Phosphorus 1.9 mg/dL (2.5-4.90)
[2022-07-15 07:26] LABS: Total Protein 5.5 g/dL (6.4-8.2)
[2022-07-15 09:00] VITALS: BP 136/84
[2022-07-15] MEDS: URSODIOL 300 MG CAP PO SCH ×2 (09:44→21:53)
[2022-07-15] MEDS: predniSONE 20 MG TAB PO SCH (09:44)
[2022-07-15] MEDS: PANTOPRAZOLE 40 MG TAB PO SCH (09:44)
[2022-07-15] MEDS ORDERED: SODIUM PHOSPHATES 24 MEQ in SODIUM CHL 0.9% 100 ML IV ONE (10:30)
[2022-07-15 13:00] VITALS: BP 139/70
[2022-07-15] MEDS: FOLIC ACID 1 MG, MULTIPLE VITAMIN 10 ML, THIAMINE INJ 100 MG in SODIUM CHLORIDE 0.9% 1,... INJ SCH (13:37)
[2022-07-15 15:00] LABS: Band Neutrophils % (manual) 2; Lymphocytes % (manual) 5 (10.0-50.0); Monocytes % (manual) 10 (0-12)
[2022-07-15] MEDS: ONDANSETRON HCL 4 MG/2 ML VIAL IV PRN (15:00)
[2022-07-15 17:00] VITALS: BP 133/75
[2022-07-15 22:00] VITALS: BP 135/77
[2022-07-16 05:00] VITALS: BP 101/53
[2022-07-16] MEDS: MIDODRINE HCL 10 MG TAB PO SCH ×3 (05:09→18:00)
[2022-07-16] MEDS: ACCU-CHEK COMFORT CURVE STRIP VI SCH ×4 (06:00→21:48)
[2022-07-16] MEDS: InsuLIN REG 1unit/0.01ml Soln (100units/ml) SC SCH ×4 (06:00→21:57)
[2022-07-16] MEDS: OCTREOTIDE ACETATE 100 MCG/ML VL SUBCUT SCH ×3 (06:07→21:48)
[2022-07-16 06:34] LABS: Calcium 8.2 mg/dL (8.5-10.1); Potassium 3.9 mmol/L (3.5-5.1)
[2022-07-16 06:36] LABS: BUN/Creatinine Ratio 25.9; Phosphorus 2.1 mg/dL (2.5-4.90)
[2022-07-16 09:00] VITALS: BP 132/72
[2022-07-16] MEDS ORDERED: POTASSIUM PHOSPHATE 26.4 MEQ in SODIUM CHL 0.9% 100 ML IV ONE (10:00)
[2022-07-16] MEDS: FOLIC ACID 1 MG, MULTIPLE VITAMIN 10 ML, THIAMINE INJ 100 MG in SODIUM CHLORIDE 0.9% 1,... INJ SCH (12:00)
[2022-07-16] MEDS: URSODIOL 300 MG CAP PO SCH ×2 (12:54→21:47)
[2022-07-16] MEDS: PANTOPRAZOLE 40 MG TAB PO SCH (12:54)
[2022-07-16] MEDS: predniSONE 20 MG TAB PO SCH (12:54)
[2022-07-16 13:00] VITALS: BP 126/66
[2022-07-16] MEDS: ONDANSETRON HCL 4 MG/2 ML VIAL IV PRN (19:25)
[2022-07-16 22:00] VITALS: BP 134/76
[2022-07-17 04:00] VITALS: BP 128/68
[2022-07-17] MEDS: MIDODRINE HCL 10 MG TAB PO SCH ×3 (06:00→17:40)
[2022-07-17] MEDS: ACCU-CHEK COMFORT CURVE STRIP VI SCH ×4 (06:42→22:46)
[2022-07-17] MEDS: OCTREOTIDE ACETATE 100 MCG/ML VL SUBCUT SCH ×3 (06:42→23:07)
[2022-07-17] MEDS: InsuLIN REG 1unit/0.01ml Soln (100units/ml) SC SCH ×4 (06:43→23:06)
[2022-07-17 06:57] LABS: Hematocrit 39.8 % (36.0-46.0); Hemoglobin 13.4 g/dL (12.2-16.2); Mean Corpuscular Hemoglobin 33.4 pg (28.0-32.0); Mean Corpuscular Hgb Conc. 33.7 g/dL (32.0-36.0); Mean Corpuscular Volume 99.1 fL (80.0-100.0); Red Blood Cells 4.01 10^6/uL (4.0-5.20); Red Cell Distribution Width 16.8 % (11.8-14.3); White Blood Cell 11.4 10^3/uL (4.4-10.8)
[2022-07-17 07:06] LABS: Albumin 2.1 g/dL (3.4-5.0); Calcium 8.5 mg/dL (8.5-10.1); Magnesium 2.5 mg/dL (1.6-2.6); Potassium 4.5 mmol/L (3.5-5.1)
[2022-07-17 07:19] LABS: Bilirubin, Total 33.9 mg/dL (0.2-1.0); Phosphorus 2.6 mg/dL (2.5-4.90)
[2022-07-17 07:23] LABS: BUN/Creatinine Ratio 22.2
[2022-07-17 07:46] LABS: Basophils % (manual) 0 (0.0-2.0); Blast Cells 0; Eosinophils % (manual) 0 (0-7); Metamyelocytes % 0; Myelocytes % 0; Promyelocytes % 0; Reactive Lymphocytes 0
[2022-07-17 08:00] VITALS: BP 154/76
[2022-07-17] MEDS: PANTOPRAZOLE 40 MG TAB PO SCH (09:12)
[2022-07-17] MEDS: predniSONE 20 MG TAB PO SCH (09:12)
[2022-07-17] MEDS: URSODIOL 300 MG CAP PO SCH ×2 (09:12→22:00)
[2022-07-17] MEDS ORDERED: hydrALAZINE HCL 20 MG/ML VL IV PRN (10:45)
[2022-07-17 12:00] VITALS: BP 149/79
[2022-07-17] MEDS: FOLIC ACID 1 MG, MULTIPLE VITAMIN 10 ML, THIAMINE INJ 100 MG in SODIUM CHLORIDE 0.9% 1,... INJ SCH (12:12)
[2022-07-17 16:00] VITALS: BP 117/67
[2022-07-17 17:09] LABS: Total Protein 5.5 g/dL (6.4-8.2)
[2022-07-17 18:20] LABS: Band Neutrophils % (manual) 2; Lymphocytes % (manual) 6 (10.0-50.0)
[2022-07-17 18:21] LABS: Monocytes % (manual) 6 (0-12)
[2022-07-17 21:38] VITALS: BP 142/73
[2022-07-18 05:30] VITALS: BP 139/79
[2022-07-18] MEDS: ACCU-CHEK COMFORT CURVE STRIP VI SCH ×4 (05:32→22:36)
[2022-07-18] MEDS: MIDODRINE HCL 10 MG TAB PO SCH ×3 (06:11→17:49)
[2022-07-18] MEDS: OCTREOTIDE ACETATE 100 MCG/ML VL SUBCUT SCH ×3 (06:13→22:38)
[2022-07-18] MEDS: InsuLIN REG 1unit/0.01ml Soln (100units/ml) SC SCH ×4 (06:13→22:37)
[2022-07-18 09:00] VITALS: BP 151/82
[2022-07-18] MEDS: PANTOPRAZOLE 40 MG TAB PO SCH (09:22)
[2022-07-18] MEDS: predniSONE 20 MG TAB PO SCH (09:22)
[2022-07-18] MEDS: URSODIOL 300 MG CAP PO SCH ×2 (11:26→22:00)
[2022-07-18] MEDS ORDERED: DEXTROSE (50%) 50ML SYRG IV PRN (12:15)
[2022-07-18 13:00] VITALS: BP 147/83
[2022-07-18] MEDS: FOLIC ACID 1 MG, MULTIPLE VITAMIN 10 ML, THIAMINE INJ 100 MG in SODIUM CHLORIDE 0.9% 1,... INJ SCH (13:09)
[2022-07-18 16:54] VITALS: BP 140/72
[2022-07-18 20:41] VITALS: BP 176/87
[2022-07-18] MEDS ORDERED: phytonadione 10 MG in SODIUM CHL 0.9% 50 ML IV ONE (21:30)
[2022-07-19 04:53] VITALS: BP 125/77
[2022-07-19 05:53] LABS: Albumin 2.1 g/dL (3.4-5.0); Calcium 8.3 mg/dL (8.5-10.1); Potassium 4.6 mmol/L (3.5-5.1)
[2022-07-19 05:53] LABS: INR 1.76 (0.9-1.15)
[2022-07-19] MEDS: OCTREOTIDE ACETATE 100 MCG/ML VL SUBCUT SCH ×3 (05:58→22:22)
[2022-07-19] MEDS: MIDODRINE HCL 10 MG TAB PO SCH ×2 (06:00→11:06)
[2022-07-19] MEDS: InsuLIN REG 1unit/0.01ml Soln (100units/ml) SC SCH ×4 (06:15→22:23)
[2022-07-19] MEDS: ACCU-CHEK COMFORT CURVE STRIP VI SCH ×4 (06:17→22:22)
[2022-07-19 06:31] LABS: BUN/Creatinine Ratio 23.5
[2022-07-19 06:58] LABS: Total Protein 5.2 g/dL (6.4-8.2)
[2022-07-19 09:00] VITALS: BP 148/76
[2022-07-19] MEDS: predniSONE 20 MG TAB PO SCH (09:22)
[2022-07-19] MEDS: URSODIOL 300 MG CAP PO SCH ×2 (09:23→22:00)
[2022-07-19] MEDS: PANTOPRAZOLE 40 MG TAB PO SCH (09:23)
[2022-07-19] MEDS: MORPHINE SULFATE INJ 2 MG/ml SYRG IV PRN (11:10)
[2022-07-19] MEDS: FOLIC ACID 1 MG, MULTIPLE VITAMIN 10 ML, THIAMINE INJ 100 MG in SODIUM CHLORIDE 0.9% 1,... INJ SCH (11:43)
[2022-07-19 13:00] VITALS: BP 150/83
[2022-07-19 16:46] VITALS: BP 121/78
[2022-07-19 17:30] LABS: INR 1.62 (0.9-1.15)
[2022-07-19 22:00] VITALS: BP 118/70
[2022-07-20] VITALS (41 sets, daily range): BP systolic 90–177; BP diastolic 40–87
[2022-07-20] MEDS: MORPHINE SULFATE INJ 2 MG/ml SYRG IV PRN (02:54)
[2022-07-20 06:05] LABS: Basophils # (auto) 0 10 ^3/uL (0-0.2); Basophils % (auto) 0.1 % (0.0-2.0); Eosinophils # (auto) 0.3 10 ^3/uL (0-0.8); Hemoglobin 13.2 g/dL (12.2-16.2); Lymphocytes # (auto) 0.6 10 ^3/uL (0.4-5.4); Neutrophils # (auto) 14.1 10 ^3/uL (1.6-8.6)
[2022-07-20 06:16] LABS: Albumin 2.2 g/dL (3.4-5.0); Anion Gap 9 (5-15); Blood Urea Nitrogen 51 mg/dL (7-18); Calcium 8.4 mg/dL (8.5-10.1); Carbon Dioxide 25 mmol/L (21-32); Chloride 101 mmol/L (98-107); Glucose 160 mg/dL (74-106); Potassium 4.7 mmol/L (3.5-5.1); Sodium 135 mmol/L (136-145)
[2022-07-20] MEDS: OCTREOTIDE ACETATE 100 MCG/ML VL SUBCUT SCH ×3 (06:21→22:32)
[2022-07-20 06:22] LABS: Eosinophils % (auto) 1.7 % (0.0-7.0); Hematocrit 38.5 % (36.0-46.0); Lymphocytes % (auto) 3.5 % (10.0-50.0); Mean Corpuscular Hemoglobin 33.8 pg (28.0-32.0); Mean Corpuscular Hgb Conc. 34.3 g/dL (32.0-36.0); Mean Corpuscular Volume 98.6 fL (80.0-100.0); Monocytes # (auto) 1.3 10 ^3/uL (0-1.3); Monocytes % (auto) 7.9 % (0.0-12.0); Neutrophils % (auto) 86.8 % (37.0-80.0); Red Cell Distribution Width 17.2 % (11.8-14.3); White Blood Cell 16.2 10^3/uL (4.4-10.8)
[2022-07-20] MEDS: ACCU-CHEK COMFORT CURVE STRIP VI SCH ×3 (06:22→18:22)
[2022-07-20] MEDS: InsuLIN REG 1unit/0.01ml Soln (100units/ml) SC SCH ×3 (06:23→18:18)
[2022-07-20 06:33] LABS: Alanine Aminotransferase 127 U/L (13-56); Alkaline Phosphatase 143 U/L (45-117); Aspartate Aminotransferase 119 U/L (15-37); BUN/Creatinine Ratio 24.5; GFR African American 31 mL/min; GFR Non-African American 26 mL/min
[2022-07-20 06:34] LABS: Bilirubin, Total > 25.0 mg/dL (0.2-1.0); Total Protein 5.4 g/dL (6.4-8.2)
[2022-07-20] MEDS ORDERED: NITROGLYCERIN 0.4 MG SL TAB SL PRN (09:45)
[2022-07-20] MEDS ORDERED: MORPHINE SULFATE INJ 2 MG/ml SYRG IV PRN (09:45)
[2022-07-20] MEDS ORDERED: TPN PER PHARMACY 0 ML IV SCH (09:45)
[2022-07-20] MEDS: URSODIOL 300 MG CAP PO SCH ×2 (10:00→22:00)
[2022-07-20] MEDS: CIPROFLOXACIN 400MG/200ML 200 ML IV SCH ×2 (10:00→23:25)
[2022-07-20] MEDS: PANTOPRAZOLE 40 MG/10 ML VIAL INJ IV SCH ×2 (10:00→22:31)
[2022-07-20] MEDS: methylPREDNISolone SOD SUCC 40 MG/ML VL IV SCH ×2 (10:00→18:00)
[2022-07-20 10:30] LABS: Magnesium 2.6 mg/dL (1.6-2.6); Phosphorus 3.9 mg/dL (2.5-4.90)
[2022-07-20] MEDS: metroNIDAZOLE 500MG/100ML 100 ML IV SCH (11:00)
[2022-07-20] MEDS ORDERED: PENTOXIFYLLINE 400 MG ER TAB PO ONE (11:15)
[2022-07-20] MEDS ORDERED: SUCCINYLCHOLINE CHLORIDE 20 MG/ML 10ML VIAL IV ONE (11:58)
[2022-07-20] MEDS ORDERED: ETOMIDATE (2MG/ML) 20ML VIAL IV ONE (11:58)
[2022-07-20] MEDS: FOLIC ACID 1 MG, MULTIPLE VITAMIN 10 ML, THIAMINE INJ 100 MG in SODIUM CHLORIDE 0.9% 1,... INJ SCH (12:00)
[2022-07-20] MEDS: PROPOFOL 100 ML IV SCH (12:00)
[2022-07-20] MEDS: LACTULOSE 10g/15ml SOLN 473ML PR SCH ×2 (12:00→18:00)
[2022-07-20] MEDS ORDERED: PROPOFOL 100 ML IV ONE (12:05)
[2022-07-20 12:08] LABS: Lactic Acid w/Reflex 2.4 mmol/L (0.4-2.0)
[2022-07-20] MEDS ORDERED: fentaNYL Drip 2500mCg/250mlNS 250 ML IV ONE (12:52)
[2022-07-20] MEDS ORDERED: MIDAZOLAM DRIP 50 mg/50mL 50 ML IV ONE (12:54)
[2022-07-20 16:47] LABS: Urine Bacteria MANY /hpf (None Seen); Urine Blood 3+ /uL (Negative); Urine Mucus FEW (None Seen); Urine Specific Gravity 1.018 (1.001-1.035); Urine WBC 406 /hpf (0 - 5); Urine WBC Clumps PRESENT /hpf (None Seen)
[2022-07-20 16:57] LABS: Protein, Urine 185.9 mg/dL (0.0-11.9)
[2022-07-20] MEDS ORDERED: DEXTROSE (50%) 50ML SYRG IV SCH (18:00)
[2022-07-20] MEDS: NOREPINEPHRINE 8 MG/250ML KIT 250 ML IV SCH (19:00)
[2022-07-20] MEDS ORDERED: AMINO ACID INFUSION IN D10W 1,000 ML IV NR (20:00)
[2022-07-20] MEDS ORDERED: PENTOXIFYLLINE 400 MG ER TAB PO SCH (22:00)
[2022-07-20] MEDS ORDERED: MIDAZOLAM HCL 2MG/2ML 2ml VIAL (1mg/ml) IV PRN (23:30)
[2022-07-21] VITALS (101 sets, daily range): BP systolic 87–118; BP diastolic 43–66
[2022-07-21] MEDS: metroNIDAZOLE 500MG/100ML 100 ML IV SCH ×4 (00:19→22:35)
[2022-07-21] MEDS: InsuLIN REG 1unit/0.01ml Soln (100units/ml) SC SCH ×4 (00:38→18:37)
[2022-07-21] MEDS: ACCU-CHEK COMFORT CURVE STRIP VI SCH ×4 (00:38→18:00)
[2022-07-21] MEDS: methylPREDNISolone SOD SUCC 40 MG/ML VL IV SCH ×3 (03:52→18:28)
[2022-07-21] MEDS ORDERED: LACTULOSE 20Gm/30ML SOLN ONE (04:12)
[2022-07-21] MEDS: LACTULOSE 10g/15ml SOLN 473ML PR SCH ×2 (06:00)
[2022-07-21] MEDS: OCTREOTIDE ACETATE 100 MCG/ML VL SUBCUT SCH ×3 (06:16→22:36)
[2022-07-21 06:49] LABS: Basophils # (auto) 0 10 ^3/uL (0-0.2); Basophils % (auto) 0.2 % (0.0-2.0); Eosinophils # (auto) 0 10 ^3/uL (0-0.8); Hematocrit 37.5 % (36.0-46.0); Hemoglobin 12.6 g/dL (12.2-16.2); Lymphocytes # (auto) 0.3 10 ^3/uL (0.4-5.4); Lymphocytes % (auto) 1.7 % (10.0-50.0); Mean Corpuscular Hemoglobin 33.3 pg (28.0-32.0); Mean Corpuscular Hgb Conc. 33.6 g/dL (32.0-36.0); Monocytes # (auto) 0.7 10 ^3/uL (0-1.3); Monocytes % (auto) 4.3 % (0.0-12.0); Neutrophils # (auto) 14.5 10 ^3/uL (1.6-8.6); Neutrophils % (auto) 93.8 % (37.0-80.0); Red Blood Cells 3.78 10^6/uL (4.0-5.20); Red Cell Distribution Width 16.5 % (11.8-14.3); White Blood Cell 15.5 10^3/uL (4.4-10.8)
[2022-07-21 07:12] LABS: Albumin 1.9 g/dL (3.4-5.0); Calcium 8.2 mg/dL (8.5-10.1); Magnesium 2.7 mg/dL (1.6-2.6); Potassium 5.2 mmol/L (3.5-5.1)
[2022-07-21 07:24] LABS: Bilirubin, Total 34.4 mg/dL (0.2-1.0); Phosphorus 5.4 mg/dL (2.5-4.90)
[2022-07-21 07:27] LABS: BUN/Creatinine Ratio 21.1
[2022-07-21 07:41] LABS: Total Protein 5.1 g/dL (6.4-8.2)
[2022-07-21 07:55] LABS: Lactic Acid w/Reflex 2.8 mmol/L (0.4-2.0)
[2022-07-21] MEDS: PENTOXIFYLLINE 400 MG ER TAB PO SCH (07:57)
[2022-07-21] MEDS ORDERED: SODIUM ZIRCONIUM CYCL 10 GM PAK PO ONE (09:15)
[2022-07-21] MEDS: LACTULOSE 20Gm/30ML SOLN PO SCH ×3 (09:30→18:00)
[2022-07-21] MEDS: URSODIOL 300 MG CAP PO SCH ×2 (10:00→22:36)
[2022-07-21] MEDS: CIPROFLOXACIN 400MG/200ML 200 ML IV SCH (10:23)
[2022-07-21] MEDS: PANTOPRAZOLE 40 MG/10 ML VIAL INJ IV SCH ×2 (10:23→22:35)
[2022-07-21] MEDS: PROPOFOL 100 ML IV SCH (11:55)
[2022-07-21] MEDS: NOREPINEPHRINE 8 MG/250ML KIT 250 ML IV SCH ×2 (12:00→22:37)
[2022-07-21] MEDS: FOLIC ACID 1 MG, MULTIPLE VITAMIN 10 ML, THIAMINE INJ 100 MG in SODIUM CHLORIDE 0.9% 1,... INJ SCH (12:00)
[2022-07-21] MEDS ORDERED: CIPROFLOXACIN 400MG/200ML 200 ML IV SCH (22:00)
[2022-07-22] VITALS (75 sets, daily range): BP systolic 78–116; BP diastolic 33–53
[2022-07-22] MEDS: ACCU-CHEK COMFORT CURVE STRIP VI SCH ×3 (00:29→12:19)
[2022-07-22] MEDS: InsuLIN REG 1unit/0.01ml Soln (100units/ml) SC SCH ×2 (00:35→06:18)
[2022-07-22] MEDS: PROPOFOL 100 ML IV SCH ×2 (00:43→06:11)
[2022-07-22] MEDS: methylPREDNISolone SOD SUCC 40 MG/ML VL IV SCH ×2 (02:54→09:35)
[2022-07-22 04:37] LABS: Albumin 1.9 g/dL (3.4-5.0); Calcium 7.4 mg/dL (8.5-10.1); Potassium 5.3 mmol/L (3.5-5.1)
[2022-07-22 04:51] LABS: BUN/Creatinine Ratio 19.2; Bilirubin, Total 33.1 mg/dL (0.2-1.0); Magnesium 2.6 mg/dL (1.6-2.6); Phosphorus 5.6 mg/dL (2.5-4.90)
[2022-07-22 04:53] LABS: Total Protein 4.9 g/dL (6.4-8.2)
[2022-07-22] MEDS: LACTULOSE 20Gm/30ML SOLN PO SCH ×3 (05:53→09:56)
[2022-07-22] MEDS ORDERED: SODIUM ZIRCONIUM CYCL 10 GM PAK PO ONE (06:00)
[2022-07-22] MEDS: metroNIDAZOLE 500MG/100ML 100 ML IV SCH (06:07)
[2022-07-22] MEDS: OCTREOTIDE ACETATE 100 MCG/ML VL SUBCUT SCH (06:08)
[2022-07-22] MEDS: PANTOPRAZOLE 40 MG/10 ML VIAL INJ IV SCH (09:35)
[2022-07-22] MEDS: PENTOXIFYLLINE 400 MG ER TAB PO SCH (09:56)
[2022-07-22] MEDS ORDERED: MORPHINE SULFATE INJ 2 MG/ml SYRG IV PRN (13:15)
[2022-07-22] MEDS: LORazepam 2MG/ML-1ML VIAL IV PRN ×2 (16:18→20:08)
[2022-07-23] VITALS (25 sets, daily range): BP systolic 64–88; BP diastolic 27–37
[2022-07-23] MEDS: LORazepam 2MG/ML-1ML VIAL IV PRN ×2 (00:38→10:34)
[2022-07-23] MEDS: MORPHINE SULFATE INJ 2 MG/ml SYRG IV PRN ×5 (02:58→14:02)
== END 2022-07-23 18:27 | DRG 280 ==
LOC: ER 11:57 → TELE 19:10 → TELE-WESTW 07-10 14:50 → DOU IN ICU 07-20 09:47 → ICU CENTRL 07-21 00:19 → DOU IN ICU 07-22 17:57
PROVIDERS: ADMIT Nurse Practitioner Family; ATTEND Internal Medicine
PROC: 5A1945Z Respiratory Ventilation, 24-96 Consecutive Hours (ICD-10-PCS; principal; 2022-07-20)
PROC: 0BH17EZ Insertion of Endotracheal Airway into Trachea, Via Natural or Artificial Opening (ICD-10-PCS; 2022-07-20)
DX: K70.11 Alcoholic hepatitis with ascites (principal); K70.31 Alcoholic cirrhosis of liver with ascites; J96.01 Acute respiratory failure with hypoxia; K76.7 Hepatorenal syndrome; G93.41 Metabolic encephalopathy; D61.818 Other pancytopenia; E43 Unspecified severe protein-calorie malnutrition; K76.82 Hepatic encephalopathy; D68.9 Coagulation defect, unspecified; Z20.822 Contact with and (suspected) exposure to COVID-19; I46.9 Cardiac arrest, cause unspecified; D69.6 Thrombocytopenia, unspecified; E87.1 Hypo-osmolality and hyponatremia; J90 Pleural effusion, not elsewhere classified; B19.20 Unspecified viral hepatitis C without hepatic coma; N18.4 Chronic kidney disease, stage 4 (severe); E11.21 Type 2 diabetes mellitus with diabetic nephropathy; E87.6 Hypokalemia; D69.59 Other secondary thrombocytopenia; Z68.32 Body mass index [BMI] 32.0-32.9, adult; D72.829 Elevated white blood cell count, unspecified; E88.09 Other disorders of plasma-protein metabolism, not elsewhere classified; I12.9 Hypertensive chronic kidney disease with stage 1 through stage 4 chronic kidney disease, or unspecified chronic kidney disease; E78.5 Hyperlipidemia, unspecified; E11.22 Type 2 diabetes mellitus with diabetic chronic kidney disease; E11.40 Type 2 diabetes mellitus with diabetic neuropathy, unspecified; J98.11 Atelectasis; N17.9 Acute kidney failure, unspecified; Z79.4 Long term (current) use of insulin; Z79.899 Other long term (current) drug therapy; Z80.1 Family history of malignant neoplasm of trachea, bronchus and lung; Z82.49 Family history of ischemic heart disease and other diseases of the circulatory system; Z80.8 Family history of malignant neoplasm of other organs or systems; Z83.3 Family history of diabetes mellitus
CPT/HCPCS: 36415; 36600; 70450; 71045; 74176; 76604; 76700; 80048; 80053; 81001; 82140; 82570; 82805; 82962; 83605; 83690; 83735; 84100; 84156; 84300; 84478; 85007; 85025; 85027; 85610; 85730; 86850; 86900; 86901; 87070; 87077; 87081; 87186; 87205; 87426; 93005; 94002; 94003; 96361; 96365; 96375; 97110; 97163; 97530; C9113; G0378; J0330; J1815; J2250; J2405; J2704; J3430; J3490; P9047